=== PATIENT | female | born 1945 | race Caucasian/White ===

== ENCOUNTER 2018-09-20 20:28 | Inpatient (IN) | payer OTHER ==
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
[2018-09-20 21:59] LABS: BASO % 1.2 % (0-2.0); EOS % 2.2 % (0-4.5); HEMATOCRIT 42.2 % (32.4-45.2); HEMOGLOBIN 14.3 GM/dL (10.7-15.3); LYMPH % 22.2 % (8-40); MCH 29.1 pg (25.7-33.7); MEAN CELL VOLUME 85.5 fl (80-96); MONO % 5.8 % (3.8-10.2); NEUT % 68.6 % (42.8-82.8); PLATELET COUNT 182 K/MM3 (134-434); RBC 4.93 M/mm3 (3.60-5.2); RDW 14.6 % (11.6-15.6); WHITE BLOOD COUNT 9.4 K/mm3 (4.0-10.0)
[2018-09-20 22:19] LABS: INR 1.08 (0.83-1.09); PROTHROMBIN TIME (PATIENT) 12.8 SEC (9.7-13.0)
[2018-09-20 22:21] LABS: ACTIVATED PTT 36.5 SECONDS (25.2-36.5)
[2018-09-20 23:04] LABS: ALBUMIN 3.4 g/dl (3.4-5.0); ALK PHOS 102 U/L (45-117); ANION GAP 8 MMOL/L (8-16); BILIRUBIN,TOTAL 0.2 mg/dL (0.2-1); BLOOD UREA NITROGEN 18 mg/dL (7-18); CALCIUM 9.1 mg/dL (8.5-10.1); CHLORIDE 101 mmol/L (98-107); CO2 27 mmol/L (21-32); CREATININE 0.5 mg/dL (0.55-1.3); GLUCOSE,RANDOM 141 mg/dL (74-106); N-TERMINAL BNP 89.1 pg/ml (5-125); POTASSIUM 4.3 mmol/L (3.5-5.1); SGOT/AST 129 U/L (15-37); SGPT/ALT 116 U/L (13-61); SODIUM 136 mmol/L (136-145); TOT PROT 7.4 g/dl (6.4-8.2)
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
--- NOTE | 2018-09-21 00:23 | PDOC ---
*Physical Exam - Vital Signs Last Vital Signs Temp Pulse Resp BP Pulse Ox 97.6 F 67 18 140/71 99 09/20/18 20:59 09/20/18 20:59 09/20/18 20:59 09/20/18 20:59 09/20/18 20:59 ED Treatment Course - LABORATORY CBC & Chemistry Diagram: 09/21/18 08:10 09/21/18 08:10 - ADDITIONAL ORDERS Additional order review: Laboratory Results 09/20/18 09/20/18 09/20/18 22:24 22:24 21:47 PT with INR INR PTT (Actin FS) Sodium 136 Potassium 4.3 Chloride 101 Carbon Dioxide 27 Anion Gap 8 BUN 18 Creatinine 0.5 L Creat Clearance w eGFR 121.63 POC Glucometer Random Glucose 141 H Lactic Acid 1.3 Calcium 9.1 Total Bilirubin 0.2 AST 129 H ALT 116 H Alkaline Phosphatase 102 Creatine Kinase 66 Troponin I < 0.02 B-Natriuretic Peptide 89.1 Total Protein 7.4 Albumin 3.4 09/20/18 09/20/18 09/20/18 21:47 21:47 21:43 PT with INR 12.80 INR 1.08 PTT (Actin FS) 36.5 Sodium Cancelled Potassium Cancelled Chloride Cancelled Carbon Dioxide Cancelled Anion Gap Cancelled BUN Cancelled Creatinine Cancelled Creat Clearance w eGFR Cancelled POC Glucometer 136 Random Glucose Cancelled Lactic Acid Calcium Cancelled Total Bilirubin Cancelled AST Cancelled ALT Cancelled Alkaline Phosphatase Cancelled Creatine Kinase Troponin I B-Natriuretic Peptide Cancelled Total Protein Cancelled Albumin Cancelled 09/20/18 09/20/18 21:47 21:43 RBC 4.93 MCV 85.5 MCHC 34.0 RDW 14.6 MPV 10.0 Neutrophils % 68.6 Lymphocytes % 22.2 Monocytes % 5.8 Eosinophils % 2.2 Basophils % 1.2 POC Glucometer 136 Medical Decision Making - Medical Decision Making Patient signed out by Dr. Sullivan 73yo F with multiple co-morbidities sent by PCP for evaluation Pending UA New inability to ambulate Will reassess 09/21/18 00:23 Decision made to order Head CT. Pending radiology report. Patient signed out to night team and Dr. Adame 09/21/18 02:43 CT head negative 09/21/18 03:02 *DC/Admit/Observation/Transfer Diagnosis at time of Disposition: Failure to thrive Qualifiers: Failure to thrive age range: in adult Qualified Code(s): R62.7 - Adult failure to thrive - Discharge Dispostion Condition at time of disposition: Improved - Referrals - Patient Instructions - Post Discharge Activity
[2018-09-21 01:34] LABS: EPI CELLS 0.6 /HPF (0-5); PH,URINE 6.5 (5.0-8.0); URINE APPEARANCE CLEAR; URINE BACTERIA 1.35 /hpf (NEGATIVE); URINE BILIRUBIN NEGATIVE (<2.0 mg/dL); URINE CASTS 1 /hpf (0-8); URINE COLOR YELLOW; URINE GLUCOSE (UA) NEGATIVE (NEGATIVE); URINE KETONE NEGATIVE (NEGATIVE); URINE LEUK ESTERASE NEGATIVE (NEGATIVE); URINE NITRITE NEGATIVE (NEGATIVE); URINE PROTEIN 1+ (NEGATIVE); URINE RBC 2 /hpf (0-4); URINE WBC 1 /hpf (0-5)
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
[2018-09-21 08:44] LABS: HEMATOCRIT 43.9 % (32.4-45.2); HEMOGLOBIN 14.9 GM/dL (10.7-15.3); MCH 29.1 pg (25.7-33.7); MCHC 33.9 g/dl (32.0-36.0); MEAN PLT VOLUME 9.6 fl (7.5-11.1); PLATELET COUNT 202 K/MM3 (134-434); RDW 14.3 % (11.6-15.6); WHITE BLOOD COUNT 9.8 K/mm3 (4.0-10.0)
[2018-09-21 09:13] LABS: ALBUMIN 3.4 g/dl (3.4-5.0); ALK PHOS 104 U/L (45-117); ANION GAP 7 MMOL/L (8-16); BILIRUBIN,TOTAL 0.3 mg/dL (0.2-1); BLOOD UREA NITROGEN 16 mg/dL (7-18); CHLORIDE 100 mmol/L (98-107); CO2 29 mmol/L (21-32); CREATININE 0.8 mg/dL (0.55-1.3); GLUCOSE,RANDOM 202 mg/dL (74-106); PHOSPHOROUS 3.2 mg/dL (2.5-4.9); POTASSIUM 4.3 mmol/L (3.5-5.1); SGOT/AST 120 U/L (15-37); SGPT/ALT 118 U/L (13-61); SODIUM 137 mmol/L (136-145); TOT PROT 7.6 g/dl (6.4-8.2)
[2018-09-21 10:27] LABS: ACTIVATED PTT 32.8 SECONDS (25.2-36.5)
[2018-09-21 10:31] LABS: INR 1.21 (0.82-1.09); PROTHROMBIN TIME (PATIENT) 13.5 SEC (10.2-13.0)
[2018-09-21] MEDS: INSULIN SLIDING SCALE (NOVOLOG) 1 VIAL SQ SCH ×4 (12:03→22:55)
[2018-09-21] MEDS: ENOXAPARIN NA (PORCINE) 40 MG/0.4 ML DISP.SYRIN SQ SCH (12:03)
[2018-09-21] MEDS ORDERED: INSULIN (NOVOLOG) ASPART 100 UNITS/ML 10ML VIAL ONE ×2 (12:13→16:50)
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
--- NOTE | 2018-09-21 16:27 | EKG ---
Test Reason : Blood Pressure : / mmHG Vent. Rate : 066 BPM Atrial Rate : 066 BPM P-R Int : 144 ms QRS Dur : 078 ms QT Int : 412 ms P-R-T Axes : 031 -43 -08 degrees QTc Int : 431 ms NORMAL SINUS RHYTHM LEFT AXIS DEVIATION MODERATE VOLTAGE CRITERIA FOR LVH, MAY BE NORMAL VARIANT ABNORMAL ECG NO PREVIOUS ECGS AVAILABLE Confirmed by RADHA RODRÍGUEZ MD ([id number]) on 09/21/2018 4:26:58 PM Referred By: Confirmed By:RADHA RODRÍGUEZ MD
[2018-09-21] MEDS ORDERED: GABAPENTIN 100 MG CAPSULE (FP) ONE (16:28)
[2018-09-21] MEDS: GABAPENTIN 300 MG CAPSULE (FP) PO SCH ×2 (16:35→22:55)
[2018-09-21] MEDS ORDERED: METHADONE HCL 10 MG PO PRN (20:12)
[2018-09-21] MEDS: traZODone HCL 50 MG TABLET (FP) PO SCH (22:55)
[2018-09-21] MEDS: clonazePAM 0.5 MG TABLET PO PRN (23:00)
[2018-09-22] MEDS: GABAPENTIN 300 MG CAPSULE (FP) PO SCH ×3 (05:45→22:01)
[2018-09-22] MEDS: INSULIN SLIDING SCALE (NOVOLOG) 1 VIAL SQ SCH ×4 (06:20→22:01)
[2018-09-22] MEDS: ENOXAPARIN NA (PORCINE) 40 MG/0.4 ML DISP.SYRIN SQ SCH (10:03)
--- NOTE | 2018-09-22 11:30 | PN ---
Teaching Attending Note Name of Resident: Fadumo Frost ATTENDING PHYSICIAN STATEMENT I saw and evaluated the patient. I reviewed the resident's note and discussed the case with the resident. I agree with the resident's findings and plan as documented. SUBJECTIVE:no change, is too weak to walk. denies Cp, SOB, fever, chills, N/V/C/ D OBJECTIVE: Last Vital Signs Temp Pulse Resp BP Pulse Ox 98.0 F 72 18 141/73 96 09/22/18 04:00 09/22/18 04:00 09/22/18 04:00 09/22/18 04:00 09/22/18 06:50 General NAD Extremities strength 2/5 LLE 4/5 RLE ASSESSMENT AND PLAN: 73yo F wtih PMH HTN, dyslipidemia, DM, bipolar and chronic back pain on methadone presented to the ER wtih back pain and LE weakness and found on CT to have T11 compression fracture of indeterminate age and multilevel disc herniations and degenerative disc disease 1. Back pain with weakness- T11 compression fracture unclear if new or old. neurosurg consulted to evaluate and see if surgery is indicated at this time. PT eval. pain control 2. DM- hold oral agents. cont iss, bgm 3. bipolar- cont home medications 4. DVT ppx- lovenox
[2018-09-22] MEDS ORDERED: SENNOSIDES 8.6MG TABLET (FP) PO SCH (13:30)
--- NOTE | 2018-09-22 15:04 | PN ---
Physical Exam: SUBJECTIVE: Patient seen and examined at bedside. Complains that her legs "feel like pieces of wood" and that she cannot ambulate. Without further complaint. OBJECTIVE: Vital Signs Period Temp Pulse Resp BP Sys/Singletary Pulse Ox Last 24 Hr 97.9 F-98.3 F 72-80 16-79 133-144/67-88 96-97 GENERAL: The patient is awake, alert, and fully oriented, in no acute distress. HEAD: Normal with no signs of trauma. EYES: PERRL, extraocular movements intact, sclera anicteric, conjunctiva clear. No ptosis. ENT: Ears normal, nares patent, oropharynx clear without exudates, moist mucous membranes. NECK: Trachea midline, supple. LUNGS: Breath sounds equal, clear to auscultation bilaterally, no wheezes, no crackles, no accessory muscle use. HEART: Regular rate and rhythm, S1, S2 without murmur, rub or gallop. ABDOMEN: Soft, obese, nontender, nondistended, normoactive bowel sounds EXTREMITIES: 2+ pt pulses. Edema (L>RLE). 3/5 motor strength LUE. NEUROLOGICAL: Cranial nerves II through XII grossly intact. PSYCH: Normal mood, normal affect. SKIN: Warm, dry, normal turgor Laboratory Results - last 24 hr 09/21/18 09/21/18 09/22/18 16:39 21:57 06:15 POC Glucometer 163 192 212 09/22/18 11:40 POC Glucometer 269 Active Medications Generic Name Dose Route Start Last Admin Trade Name Freq PRN Reason Stop Dose Admin Clonazepam 1 mg 09/21/18 08:52 09/21/18 23:00 Klonopin - PO 1 mg TID PRN Administration ANXIETY Enoxaparin Sodium 40 mg 09/21/18 10:00 09/22/18 10:03 Lovenox - SQ 40 mg DAILY YESY Administration Gabapentin 600 mg 09/21/18 14:00 09/22/18 05:45 Neurontin - PO 600 mg TID YESY Administration Insulin Aspart 1 vial 09/21/18 07:00 09/22/18 12:20 Novolog Vial Sliding Scale - SQ 6 units ACHS YESY Administration Protocol Methadone HCl 10 mg 09/21/18 20:12 Dolophine - PO Q8H PRN PAIN LEVEL 7 - 10 Senna 1 tab 09/22/18 13:30 Senna - PO BID YESY Trazodone HCl 100 mg 09/21/18 22:00 09/21/18 22:55 Desyrel - PO 100 mg HS YESY Administration ASSESSMENT/PLAN: 73 y/o F with PMH HTN, HLD, DM, bipolar disorder, chronic back pain, opiod dependence on methadone, who presents to the ED c/o 2 week hx LE pain and inability to ambulate. #LE pain, inability to ambulate -possible 2/2 t11 compression fx. degenerative disc dz, bulging discs. foraminal stenosis as seen on spine CT -will follow neurosx recs, pt amenable to sx if needed -neurosx: Dr. Alcaraz #DM -BGM, ISS ACHS #Bipolar d/o #Anxiety -c/w trazodone -c/w klonopin PRN #opiod dependence -c/w methadone #F/E/N no IVF required at this time continue to follow lytes diabetic diet #PPX DVT: lovenox #Dispo monitoring on med-surg await neurosx eval and recs if no sx indicated, can d/c home tomorrow Visit type - Emergency Visit Emergency Visit: No - New Patient This patient is new to me today: Yes Date on this admission: 09/22/18 - Critical Care Critical Care patient: No
[2018-09-22] MEDS: SENNOSIDES 8.6MG TABLET (FP) PO SCH ×2 (16:57→22:01)
[2018-09-22] MEDS ORDERED: PT OWN MED DRAWER 7, Y5N ONE (16:57)
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
[2018-09-22] MEDS ORDERED: INSULIN (NOVOLOG) ASPART 100 UNITS/ML 10ML VIAL ONE (21:15)
[2018-09-22] MEDS: clonazePAM 0.5 MG TABLET PO PRN (22:01)
[2018-09-22] MEDS: traZODone HCL 50 MG TABLET (FP) PO SCH (22:01)
[2018-09-23] MEDS: GABAPENTIN 300 MG CAPSULE (FP) PO SCH ×3 (06:33→23:03)
[2018-09-23] MEDS: INSULIN SLIDING SCALE (NOVOLOG) 1 VIAL SQ SCH ×4 (06:34→23:30)
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
[2018-09-23] MEDS ORDERED: PT OWN MED DRAWER 7, Y5N ONE (10:23)
[2018-09-23] MEDS: SENNOSIDES 8.6MG TABLET (FP) PO SCH ×2 (10:44→23:02)
[2018-09-23] MEDS: ENOXAPARIN NA (PORCINE) 40 MG/0.4 ML DISP.SYRIN SQ SCH (10:44)
[2018-09-23] MEDS: METHADONE HCL 10 MG PO PRN ×2 (11:19→23:12)
--- NOTE | 2018-09-23 16:45 | PN ---
Teaching Attending Note Name of Resident: Adrian Tamez ATTENDING PHYSICIAN STATEMENT I saw and evaluated the patient. I reviewed the resident's note and discussed the case with the resident. I agree with the resident's findings and plan as documented. SUBJECTIVE:states today she has pain and still unable to walk. denies CP, SOB, fever, chills, numbnes/tingling in extremities, bowel/bladder incontinence OBJECTIVE: Last Vital Signs Temp Pulse Resp BP Pulse Ox 97.9 F 75 19 144/76 96 09/23/18 14:36 09/23/18 14:36 09/23/18 14:36 09/23/18 14:36 09/23/18 01:00 General NAD Extremities strength 2/5 LLE 4/5 RLE ASSESSMENT AND PLAN: 73yo F wtih PMH HTN, dyslipidemia, DM, bipolar and chronic back pain on methadone presented to the ER wtih back pain and LE weakness and found on CT to have T11 compression fracture of indeterminate age and multilevel disc herniations and degenerative disc disease 1. Back pain with weakness- T11 compression fracture unclear if new or old. neurosurg recommended MRI to further evaluate if surgical candidate. will f/u MRI. pt has methadone she uses for pain. informed her to request pain medications if needed. 2. DM- hold oral agents. cont iss, bgm 3. bipolar- cont home medications 4. DVT ppx- lovenox
[2018-09-23] MEDS: traZODone HCL 50 MG TABLET (FP) PO SCH (23:02)
--- NOTE | 2018-09-23 23:44 | PN ---
Progress Note (short form) - Note Progress Note: MRI Lumbar spine completed and reveals significant degeneration at the L23 level with loss of disc height, Modic changes and endplate sclerosis. There are moderate degenerative changes at other levels in her Lumbar spine and the coronal deformity of her Lumbar degenerative scoliosis is apparent. Plain film radiographs demonstrate a relatively stiff Lumbar degenerative scoliosis. Lateral bending films were not able to be obtained. There is no clear substantial listhesis or abnormal movement noted. The patient continues to have severe pain and cannot get out of bed. She is tachyphylactic to narcotics and in extreme pain. She describes a poor quality of life and severe impairment of her activities of daily living. Patient is with her and I reviewed the Plain film, CT and MRI findings with them in detail. I again described the role of conservative measures and stressed that surgery was not mandatory, however, it appears fairly clear that the patient is in great distress and is not likely to spontaneously improve. I discussed the role of revision surgery with them in great detail. I explained the risks, benefits and alternatives to L2-S1 laminectomies (reoperative at L5S1) and osteotomies with removal of the posterior instrumentation and exploration of the spinal fusion and possible interbody cage/arthrodesis and posterior instrumentaiton from L2-S1 with pedicle screws and correction of deformity. I explained that the risks included, but were not limited to: , coma, paralysis, bleeding, infection, CSF leak possibly requiring spinal drainage or additional surgery, failure to fuse, instrumentation migration/malfunction/malposition and the need for additional surgery. I explained that not all patients improve and complete relief of pain was not assured. I offered her the option of seeking another opinion or another surgeon. All questions were answered. Informed consent was obtained. I explained that unique risks of surgery for her were poor wound healing and elevated risk of infection due to her body habitus and diabetes. I explained that instrumentation may be technically challenging due to her atypically small pedicles and that reoperation was associated with an increased risk of durotomy. I explained that pain control will be a challenge in a patient with her narcotic history. The patient and spouse verbalize an understanding of this information and asked intelligent questions. I gave them an opportunity to discuss this with their family, however, the patient indicates that she is inclined to proceed. I will discuss this case with Dr. Bansal and determine her medical fitness to proceed and will plan for potential surgery on August.
[2018-09-24] MEDS: GABAPENTIN 300 MG CAPSULE (FP) PO SCH ×3 (07:03→21:38)
[2018-09-24] MEDS: INSULIN SLIDING SCALE (NOVOLOG) 1 VIAL SQ SCH ×4 (07:05→21:39)
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
[2018-09-24] MEDS: METHADONE HCL 10 MG PO PRN ×2 (08:57→16:36)
[2018-09-24] MEDS: clonazePAM 0.5 MG TABLET PO PRN ×2 (08:57→16:36)
[2018-09-24] MEDS: SENNOSIDES 8.6MG TABLET (FP) PO SCH ×2 (10:52→21:38)
[2018-09-24] MEDS: ENOXAPARIN NA (PORCINE) 40 MG/0.4 ML DISP.SYRIN SQ SCH (10:52)
--- NOTE | 2018-09-24 11:25 | PN ---
Teaching Attending Note Name of Resident: Adrian Tamez ATTENDING PHYSICIAN STATEMENT I saw and evaluated the patient. I reviewed the resident's note and discussed the case with the resident. I agree with the resident's findings and plan as documented. SUBJECTIVE:states pain is controlled. denies CP, SOB, fever, chills, N/V/C/D OBJECTIVE: Last Vital Signs Temp Pulse Resp BP Pulse Ox 98.0 F 86 18 125/76 96 09/24/18 09:11 09/24/18 09:11 09/24/18 09:11 09/24/18 09:11 09/24/18 01:00 General NAD Extremities strength 2/5 LLE 4/5 RLE skin flat macular rash in atypical pattern across abdomen is noted. also ring like lesion noted on L chest and L wrist. ASSESSMENT AND PLAN: 73yo F wtih PMH HTN, dyslipidemia, DM, bipolar and chronic back pain on methadone presented to the ER wtih back pain and LE weakness and found on CT to have T11 compression fracture of indeterminate age and multilevel disc herniations and degenerative disc disease 1. Back pain with weakness-plan for L2-S1 laminectomies (reoperative at L5S1) on 09/26. will need medical clearance prior to procedure. awaiting official MRI report. pain control. PT post-op to assess if will require GUSTAVO on discharge. further recommendations per neurosurg. 2. rash- atypical presentation. has been present for several years per patient and was told it was ringworm. does not appear to be ringworm. as has been chronic and not new will send derm referral on discharge 3. DM- hold oral agents. cont iss, bgm 4. bipolar- cont home medications 5. DVT ppx- lovenox 6. may need GUSTAVO when medically cleared for discharge.
[2018-09-24] MEDS: traZODone HCL 50 MG TABLET (FP) PO SCH (21:39)
[2018-09-25] MEDS: INSULIN SLIDING SCALE (NOVOLOG) 1 VIAL SQ SCH ×4 (06:47→22:20)
[2018-09-25] MEDS: GABAPENTIN 300 MG CAPSULE (FP) PO SCH ×3 (06:47→22:20)
[2018-09-25] MEDS: clonazePAM 0.5 MG TABLET PO PRN ×2 (06:53→15:15)
[2018-09-25] MEDS: METHADONE HCL 10 MG PO PRN ×3 (06:53→22:20)
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
[2018-09-25] MEDS ORDERED: PT OWN MED DRAWER 7, Y5N ONE (10:02)
[2018-09-25] MEDS: SENNOSIDES 8.6MG TABLET (FP) PO SCH ×2 (10:04→22:20)
[2018-09-25] MEDS: ENOXAPARIN NA (PORCINE) 40 MG/0.4 ML DISP.SYRIN SQ SCH (10:04)
--- NOTE | 2018-09-25 16:32 | PN ---
Teaching Attending Note Name of Resident: Adrian Tamez ATTENDING PHYSICIAN STATEMENT I saw and evaluated the patient. I reviewed the resident's note and discussed the case with the resident. I agree with the resident's findings and plan as documented. SUBJECTIVE: Complains of ongoing neck/back pain. No headache/fever/chills/ photophobia. No bladder/bowel dysfunction. No new focal neurological complaints. OBJECTIVE: Afebrile, Hemodynamically Stable. Oriented x 2. Last Vital Signs Temp Pulse Resp BP Pulse Ox 98.7 F 77 22 H 139/69 92% 09/25/18 14:15 09/25/18 14:15 09/25/18 14:15 09/25/18 14:15 09/25/18 10:00 HEENT - Atraumatic, Normocephalic Heart - S1, S2, Lungs - clear to auscultation Abdomen - Soft, non-tender. Bowel Sounds normal Extremities - No calf tenderness Neuro - AAO x 2. Tone/Power 4-5/5 LEs. Laboratory Results - last 24 hr 09/24/18 09/24/18 09/25/18 16:35 21:36 06:46 POC Glucometer 183 314 213 09/25/18 11:55 POC Glucometer 303 Current Medications Generic Name Dose Route Start Last Admin Trade Name Freq PRN Reason Stop Dose Admin Chlorhexidine Gluconate 1 applic 09/25/18 22:00 Hibiclens For Decolonization - TP 09/26/18 21:59 HS YESY Clonazepam 1 mg 09/21/18 08:52 09/25/18 15:15 Klonopin - PO 1 mg TID PRN Administration ANXIETY Enoxaparin Sodium 40 mg 09/21/18 10:00 09/25/18 10:04 Lovenox - SQ 40 mg DAILY YESY Administration Gabapentin 600 mg 09/21/18 14:00 09/25/18 15:15 Neurontin - PO 600 mg TID YESY Administration Insulin Aspart 1 vial 09/21/18 07:00 09/25/18 11:57 Novolog Vial Sliding Scale - SQ 8 units ACHS YESY Administration Protocol Methadone HCl 10 mg 09/23/18 10:46 09/25/18 15:15 Dolophine - PO 10 mg Q8H PRN Administration PAIN LEVEL 7 - 10 Senna 1 tab 09/22/18 15:30 09/25/18 10:04 Senna - PO 1 tab BID YESY Administration Trazodone HCl 100 mg 09/21/18 22:00 09/24/18 21:39 Desyrel - PO 100 mg HS YESY Administration Home Medications Medication Instructions Recorded Clonazepam 1 mg PO TID 09/21/18 Gabapentin 600 mg PO TID 09/21/18 Insulin Lispro [Humalog Kwikpen 10 units SQ AC 09/21/18 U-100] Metformin HCl [Glucophage] 1,000 mg PO BID 09/21/18 Methadone HCl 1 tab PO Q8H PRN 09/21/18 traZODone HCL [Trazodone HCl] 100 mg PO HS 09/21/18 ASSESSMENT AND PLAN: 73 year old Male with history of HTN, HLD, DM 2, Bipolar Disorder, Chronic Back Pain on Methadone presented with intractable back pain and LE weakness, found to have T11 compression fracture of indeterminate age and multilevel disc herniations and degenerative disc disease on imaging. 1. DJD Spine - scheduled for L2-S1 Laminectomies on 09/26 by Neurosurgery. Patient is at least at moderate risk for proposed procedure. Perioperative IV hydration and post-op DVT Prophylaxis and early mobilization recommended. 2. DM 2 - oral anti-hyperglycemic agents held. Maintain on sliding scale insulin. 3. Bipolar Disorder - Continue Clonazepan, Trazodone 4. Chronic Back Pain secondary to DJD - continue Methadone. 5. Dementia - likely diagnosis. Orientation x 2. Patient unaware of year. She says this is a long-term issue with no other deterioration in her memory. Will leave it up to Surgery to determine medical decision making capacity for proposed procedure. DVT Px - Lovenox - will hold tonight prior to Spinal Sx.
--- NOTE | 2018-09-25 20:45 | PN ---
Progress Note (short form) - Note Progress Note: Patient is stable. Surgery and other treatment options once again reviewed. All questions answered.
[2018-09-25] MEDS ORDERED: CHLORHEXIDINE GLUCONATE 4% CLEANSER FOR DECOLONIZATION TP SCH (22:00)
[2018-09-25] MEDS: traZODone HCL 50 MG TABLET (FP) PO SCH (22:20)
[2018-09-26] MEDS: GABAPENTIN 300 MG CAPSULE (FP) PO SCH ×2 (05:51→21:45)
[2018-09-26] MEDS: INSULIN SLIDING SCALE (NOVOLOG) 1 VIAL SQ SCH ×2 (06:03→21:58)
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
[2018-09-26] MEDS ORDERED: SODIUM CHLORIDE 1,000 ML IV SCH (06:30)
[2018-09-26 07:35] LABS: BASO % 0.4 % (0-2.0); EOS % 2.5 % (0-4.5); HEMATOCRIT 45.5 % (32.4-45.2); HEMOGLOBIN 14.6 GM/dL (10.7-15.3); LYMPH % 33.5 % (8-40); MCH 27.5 pg (25.7-33.7); MCHC 32.2 g/dl (32.0-36.0); MEAN CELL VOLUME 85.6 fl (80-96); MEAN PLT VOLUME 9.8 fl (7.5-11.1); MONO % 5.7 % (3.8-10.2); NEUT % 57.9 % (42.8-82.8); PLATELET COUNT 184 K/MM3 (134-434); RBC 5.31 M/mm3 (3.60-5.2); RDW 14.5 % (11.6-15.6); WHITE BLOOD COUNT 7.9 K/mm3 (4.0-10.0)
[2018-09-26 07:47] LABS: ALBUMIN 3.2 g/dl (3.4-5.0); ALK PHOS 102 U/L (45-117); ANION GAP 4 MMOL/L (8-16); BILIRUBIN,TOTAL 0.4 mg/dL (0.2-1); BLOOD UREA NITROGEN 19 mg/dL (7-18); CALCIUM 9.1 mg/dL (8.5-10.1); CHLORIDE 101 mmol/L (98-107); CO2 31 mmol/L (21-32); CREATININE 0.6 mg/dL (0.55-1.3); GLUCOSE,RANDOM 253 mg/dL (74-106); MAGNESIUM 2.1 mg/dL (1.8-2.4); POTASSIUM 4.3 mmol/L (3.5-5.1); SGOT/AST 67 U/L (15-37); SGPT/ALT 107 U/L (13-61); SODIUM 136 mmol/L (136-145); TOT PROT 7.5 g/dl (6.4-8.2)
[2018-09-26 07:56] LABS: INR 1.14 (0.83-1.09); PROTHROMBIN TIME (PATIENT) 13.5 SEC (9.7-13.0)
[2018-09-26 07:59] LABS: ACTIVATED PTT 39.4 SECONDS (25.2-36.5)
[2018-09-26] MEDS ORDERED: MORPHINE 5 MG/10 ML AMP - FOR COMPOUNDING USE ONLY ONE (08:46)
[2018-09-26] MEDS ORDERED: VANCOMYCIN 1,000 MG VIAL (RESTRICTED TO ID ONLY) ONE (09:05)
[2018-09-26] MEDS ORDERED: LIDOCAINE 1%-EPI 1:100,000 30 ML MDV IJ ONE (09:05)
[2018-09-26] MEDS: SENNOSIDES 8.6MG TABLET (FP) PO SCH ×2 (09:05→21:46)
[2018-09-26] MEDS ORDERED: GENTAMICIN SO4 80 MG/2 ML VIAL ONE ×3 (09:05→12:37)
[2018-09-26] MEDS ORDERED: THROMBIN (BOVINE) 20,000 UNIT VIAL TP ONE ×2 (09:05→13:37)
[2018-09-26] MEDS ORDERED: fentaNYL CITRATE 250 MCG/5 ML VIAL ONE ×3 (09:53→15:39)
[2018-09-26] MEDS ORDERED: PROPOFOL 20 ML ONE ×2 (09:54)
[2018-09-26] MEDS ORDERED: ROCURONIUM BROMIDE 50 MG/5 ML VIAL ONE ×3 (09:54→15:06)
[2018-09-26] MEDS ORDERED: THROMBIN (BOVINE) 5,000 UNIT VIAL TP ONE ×3 (09:57→11:12)
[2018-09-26] MEDS ORDERED: GENTAMICIN SO4 80 MG/2 ML VIAL IVPB ONE ×2 (10:53→11:30)
[2018-09-26] MEDS ORDERED: VANCOMYCIN 1,000 MG VIAL (RESTRICTED TO ID ONLY) IVPB ONE ×3 (10:53→14:42)
[2018-09-26] MEDS ORDERED: ceFAZolin SODIUM 1 GM VIAL IVPB ONE (10:53)
[2018-09-26] MEDS ORDERED: LIDOCAINE 1%/EPI 1:100000 (50 ML MULTI DOSE VIAL) NR ONE (10:54)
[2018-09-26 11:04] LABS: EPI CELLS 2.7 /HPF (0-5); PH,URINE 7.5 (5.0-8.0); URINE APPEARANCE TURBID; URINE BACTERIA >9000 /hpf (NEGATIVE); URINE BILIRUBIN NEGATIVE (NEGATIVE); URINE CASTS 82 /hpf (0-8); URINE COLOR YELLOW; URINE GLUCOSE (UA) 2+ (NEGATIVE); URINE KETONE 1+ (NEGATIVE); URINE LEUK ESTERASE 3+ (NEGATIVE); URINE NITRITE NEGATIVE (NEGATIVE); URINE PROTEIN 1+ (NEGATIVE); URINE WBC 1423 /hpf (0-5)
[2018-09-26] MEDS ORDERED: GELATIN, ABSORBABLE 12-7MM EACH SPONGE TP ONE ×2 (11:12)
[2018-09-26] MEDS ORDERED: ONDANSETRON 4 MG/2 ML VIAL ONE (11:14)
[2018-09-26] MEDS ORDERED: KETOROLAC TROMETHAMINE 30 MG/1 ML VIAL ONE (11:14)
[2018-09-26] MEDS ORDERED: DEXAMETHASONE SOD PHOSPHATE 4 MG/1 ML VIAL ONE (11:14)
[2018-09-26] MEDS ORDERED: BACITRACIN 50,000 UNITS VIAL TP ONE ×3 (11:30→14:42)
[2018-09-26 12:17] LABS: URINE RBC 42 /hpf (0-4)
[2018-09-26 12:19] LABS: YEAST NONE SEEN (NEGATIVE)
[2018-09-26] MEDS ORDERED: SODIUM CHLORIDE 0.9% P/F 10 ML VIAL IJ ONE (12:38)
[2018-09-26] MEDS ORDERED: CALCIUM CHLORIDE 1 GM/10 ML *DISP.SYRIN ONE (13:19)
--- NOTE | 2018-09-26 13:23 | PN ---
Teaching Attending Note Name of Resident: Adrian Tamez ATTENDING PHYSICIAN STATEMENT I saw and evaluated the patient. I reviewed the resident's note and discussed the case with the resident. I agree with the resident's findings and plan as documented. SUBJECTIVE: Complains of ongoing neck/back pain. No headache/fever/chills/ photophobia. No bladder/bowel dysfunction. No new focal neurological complaints. OBJECTIVE: Afebrile, Hemodynamically Stable. Oriented x 2. Last Vital Signs Temp Pulse Resp BP Pulse Ox 98.4 F 81 20 147/88 91 L 09/26/18 06:00 09/26/18 09:00 09/26/18 09:00 09/26/18 09:00 09/25/18 21:00 HEENT - Atraumatic, Normocephalic Heart - S1, S2, Lungs - clear to auscultation Abdomen - Soft, non-tender. Bowel Sounds normal Extremities - No calf tenderness Neuro - AAO x 2. Tone/Power 4-5/5 LEs. Laboratory Results - last 24 hr 09/25/18 09/25/18 09/25/18 17:09 17:30 20:00 WBC RBC Hgb Hct MCV MCH MCHC RDW Plt Count MPV Absolute Neuts (auto) Neutrophils % Lymphocytes % Monocytes % Eosinophils % Basophils % Nucleated RBC % PT with INR INR PTT (Actin FS) Sodium Potassium Chloride Carbon Dioxide Anion Gap BUN Creatinine Creat Clearance w eGFR POC Glucometer 193 Random Glucose Calcium Phosphorus Magnesium Total Bilirubin AST ALT Alkaline Phosphatase Total Protein Albumin Urine Color Urine Appearance Urine pH Ur Specific [place] Urine Protein Urine Glucose (UA) Urine Ketones Urine Blood Urine Nitrite Urine Bilirubin Urine Urobilinogen Ur Leukocyte Esterase Urine WBC (Auto) Urine RBC (Auto) Urine Casts (Auto) U Pathogenic Cast Auto U Epithel Cells (Auto) Urine Bacteria (Auto) Urine Yeast (Auto) Blood Type B NEGATIVE B NEGATIVE Antibody Screen Positive Antibody Identification Anti-D Antigen Identification No Result Required. Crossmatch IS Only 09/25/18 09/26/18 09/26/18 20:31 05:49 06:35 WBC 7.9 RBC 5.31 H Hgb 14.6 Hct 45.5 H MCV 85.6 MCH 27.5 MCHC 32.2 RDW 14.5 Plt Count 184 MPV 9.8 Absolute Neuts (auto) 4.6 Neutrophils % 57.9 Lymphocytes % 33.5 D Monocytes % 5.7 Eosinophils % 2.5 Basophils % 0.4 Nucleated RBC % 0 PT with INR INR PTT (Actin FS) Sodium Potassium Chloride Carbon Dioxide Anion Gap BUN Creatinine Creat Clearance w eGFR POC Glucometer 265 234 Random Glucose Calcium Phosphorus Magnesium Total Bilirubin AST ALT Alkaline Phosphatase Total Protein Albumin Urine Color Urine Appearance Urine pH Ur Specific [place] Urine Protein Urine Glucose (UA) Urine Ketones Urine Blood Urine Nitrite Urine Bilirubin Urine Urobilinogen Ur Leukocyte Esterase Urine WBC (Auto) Urine RBC (Auto) Urine Casts (Auto) U Pathogenic Cast Auto U Epithel Cells (Auto) Urine Bacteria (Auto) Urine Yeast (Auto) Blood Type Antibody Screen Antibody Identification Antigen Identification Crossmatch IS Only 09/26/18 09/26/18 09/26/18 06:35 06:35 06:35 WBC RBC Hgb Hct MCV MCH MCHC RDW Plt Count MPV Absolute Neuts (auto) Neutrophils % Lymphocytes % Monocytes % Eosinophils % Basophils % Nucleated RBC % PT with INR 13.50 H INR 1.14 H PTT (Actin FS) 39.4 H Sodium 136 Potassium 4.3 Chloride 101 Carbon Dioxide 31 Anion Gap 4 L BUN 19 H Creatinine 0.6 Creat Clearance w eGFR 98.55 POC Glucometer Random Glucose 253 H Calcium 9.1 Phosphorus 3.0 Magnesium 2.1 Total Bilirubin 0.4 AST 67 H ALT 107 H Alkaline Phosphatase 102 Total Protein 7.5 Albumin 3.2 L Urine Color Urine Appearance Urine pH Ur Specific [place] Urine Protein Urine Glucose (UA) Urine Ketones Urine Blood Urine Nitrite Urine Bilirubin Urine Urobilinogen Ur Leukocyte Esterase Urine WBC (Auto) Urine RBC (Auto) Urine Casts (Auto) U Pathogenic Cast Auto U Epithel Cells (Auto) Urine Bacteria (Auto) Urine Yeast (Auto) Blood Type B NEGATIVE Antibody Screen Positive Antibody Identification No Result Required. Antigen Identification No Result Required. Crossmatch IS Only See Detail 09/26/18 10:45 WBC RBC Hgb Hct MCV MCH MCHC RDW Plt Count MPV Absolute Neuts (auto) Neutrophils % Lymphocytes % Monocytes % Eosinophils % Basophils % Nucleated RBC % PT with INR INR PTT (Actin FS) Sodium Potassium Chloride Carbon Dioxide Anion Gap BUN Creatinine Creat Clearance w eGFR POC Glucometer Random Glucose Calcium Phosphorus Magnesium Total Bilirubin AST ALT Alkaline Phosphatase Total Protein Albumin Urine Color Yellow Urine Appearance Turbid Urine pH 7.5 Ur Specific [place] 1.023 Urine Protein 1+ H Urine Glucose (UA) 2+ H Urine Ketones 1+ H Urine Blood 2+ H Urine Nitrite Negative Urine Bilirubin Negative Urine Urobilinogen 1.0 Ur Leukocyte Esterase 3+ H Urine WBC (Auto) 1423 Urine RBC (Auto) 42 Urine Casts (Auto) 82 U Pathogenic Cast Auto Wbc cast seen U Epithel Cells (Auto) 2.7 Urine Bacteria (Auto) >9000 Urine Yeast (Auto) None seen Blood Type Antibody Screen Antibody Identification Antigen Identification Crossmatch IS Only Current Medications Generic Name Dose Route Start Last Admin Trade Name Freq PRN Reason Stop Dose Admin Chlorhexidine Gluconate 1 applic 09/25/18 22:00 09/25/18 22:21 Hibiclens For Decolonization - TP 09/26/18 21:59 1 applic HS YESY Administration Clonazepam 1 mg 09/21/18 08:52 09/25/18 15:15 Klonopin - PO 1 mg TID PRN Administration ANXIETY Gabapentin 600 mg 09/21/18 14:00 09/26/18 05:51 Neurontin - PO Not Given TID YESY Sodium Chloride 1,000 mls @ 50 mls/hr 09/26/18 06:30 09/26/18 07:04 Normal Saline - IV 09/27/18 06:24 50 mls/hr ASDIR YESY Administration Insulin Aspart 1 vial 09/21/18 07:00 09/26/18 06:03 Novolog Vial Sliding Scale - SQ Not Given ACHS YESY Protocol Methadone HCl 10 mg 09/23/18 10:46 09/25/18 22:20 Dolophine - PO 10 mg Q8H PRN Administration PAIN LEVEL 7 - 10 Senna 1 tab 09/22/18 15:30 09/26/18 09:05 Senna - PO Not Given BID YESY Trazodone HCl 100 mg 09/21/18 22:00 09/25/18 22:20 Desyrel - PO 100 mg HS YESY Administration ASSESSMENT AND PLAN: 73 year old Male with history of HTN, HLD, DM 2, Bipolar Disorder, Chronic Back Pain on Methadone presented with intractable back pain and LE weakness, found to have T11 compression fracture of indeterminate age and multilevel disc herniations and degenerative disc disease on imaging. 1. DJD Spine - s/p L2-S1 Laminectomies on 09/26 by Neurosurgery. PT Renetta-op management as per Neurosurgery 2. DM 2 - oral anti-hyperglycemic agents held. Maintain on sliding scale insulin. 3. Bipolar Disorder - Continue Clonazepam, Trazodone 4. Chronic Back Pain secondary to DJD - continue Methadone. 5. Dementia - likely diagnosis. Orientation x 2. Patient unaware of year. She says this is a long-term issue with no other deterioration in her memory. Family confirm that patient is at baseline mental status. 6. Elevated Transaminases, etiology unclear. AST 129 --> 67, ALT 118 --> 107. Abdominal US requested. DVT Px - SCDs immediately post neurosurgery.
[2018-09-26] MEDS ORDERED: BUPIVACAINE LIPOSOME/PF (EXPAREL) 266 MG/20 ML VIAL NR ONE ×2 (15:30)
[2018-09-26] MEDS ORDERED: BUPIVACAINE HCL/PF (5 MG/ML) 30 ML VIAL IJ ONE ×2 (15:30)
[2018-09-26] MEDS ORDERED: MIDAZOLAM HCL 2 MG/2 ML SINGLE DOSE VIAL ONE (15:55)
[2018-09-26] MEDS ORDERED: diphenhydrAMINE HCL 25 MG CAPSULE (FP) PO PRN (16:13)
[2018-09-26] MEDS ORDERED: ONDANSETRON 4 MG/2 ML VIAL IVPUSH PRN (16:13)
[2018-09-26] MEDS ORDERED: LACTATED RINGERS SOLUTION 1,000 ML/1,000 ML INFUS.BAG IV SCH (16:15)
[2018-09-26] MEDS ORDERED: morphine CARPU-JECT 4 MG/1 ML DISP.SYRIN IVPUSH SCH (16:15)
--- NOTE | 2018-09-26 16:38 | OP ---
Operative Note - Note: Operative Date: 09/26/18 Pre-Operative Diagnosis: Chronic LBP (h/o fusion), radiculopathy, inability to ambulate secondary to pain Operation: Exploration spinal fusion, removal of hardware, L2-S1 laminectomies with interbody cage placement x2, deformity correction, L2-S1 pedicle screws Estimated Blood Loss (mls): 2,000 Drains & Tubes with Location: RITU Drains, Volume Out (mls): 150 (pal, turbid) Blood Volume Replaced (mls): 1,400 Fluid Volume Replaced (mls): 5,500 Operative Report Dictated: Yes
[2018-09-26] MEDS: FENTANYL INJECTION 500 MCG in DEXTROSE 5%-WATER - 90 ML IVPB SCH (16:50)
[2018-09-26] MEDS: LACTATED RINGERS SOLUTION 1,000 ML/1,000 ML INFUS.BAG IV SCH (17:00)
--- NOTE | 2018-09-26 17:09 | PROC ---
Procedure Note Procedure: Gonzalez cath placed prior to surgical procedure.
--- NOTE | 2018-09-26 17:12 | CONSULT ---
Consult Consult Specialty:: ICU - Past Medical History ...: No - Alcohol/Substance Use Hx Alcohol Use: No - Smoking History Smoking history: Current every day smoker Have you smoked in the past 12 months: Yes Aproximately how many cigarettes per day: 4 Home Medications - Allergies Allergies/Adverse Reactions: Allergies Allergy/AdvReac Type Severity Reaction Status Date / Time No Known Allergies Allergy Verified 09/20/18 20:59 - Home Medications Home Medications: Ambulatory Orders Clonazepam 1 mg PO TID 09/21/18 Gabapentin 600 mg PO TID 09/21/18 Insulin Lispro [Humalog Kwikpen U-100] 10 units SQ AC 09/21/18 Metformin HCl [Glucophage] 1,000 mg PO BID 09/21/18 Methadone HCl 1 tab PO Q8H PRN 09/21/18 traZODone HCL [Trazodone HCl] 100 mg PO HS 09/21/18 Physical Exam Vital Signs: Vital Signs Temperature 98.4 F 09/26/18 06:00 Pulse Rate 81 09/26/18 09:00 Respiratory Rate 20 09/26/18 09:00 Blood Pressure 147/88 09/26/18 09:00 O2 Sat by Pulse Oximetry (%) 91 L 09/25/18 21:00 Labs: CBC, BMP 09/26/18 06:35 09/26/18 06:35
[2018-09-26] MEDS: PROPOFOL 1,000,000 MCG/100 ML VIAL IVPB SCH ×2 (17:15→20:38)
[2018-09-26] MEDS: CEFAZOLIN 1 GM/D5W 1 GM/50 ML BAG IVPB SCH (18:00)
[2018-09-26] MEDS ORDERED: ceFAZolin SODIUM 1 GM VIAL ONE (18:05)
[2018-09-26 18:07] LABS: HEMATOCRIT 48.1 % (32.4-45.2); HEMOGLOBIN 15.6 GM/dL (10.7-15.3); MCH 28.7 pg (25.7-33.7); MCHC 32.5 g/dl (32.0-36.0); MEAN CELL VOLUME 88.2 fl (80-96); MEAN PLT VOLUME 10.6 fl (7.5-11.1); PLATELET COUNT 199 K/MM3 (134-434); RBC 5.46 M/mm3 (3.60-5.2); RDW 13.9 % (11.6-15.6); WHITE BLOOD COUNT 21.4 K/mm3 (4.0-10.0)
[2018-09-26 18:46] LABS: ANION GAP 15 MMOL/L (8-16); BLOOD UREA NITROGEN 21 mg/dL (7-18); CALCIUM 8.1 mg/dL (8.5-10.1); CHLORIDE 106 mmol/L (98-107); CO2 18 mmol/L (21-32); CREATININE 1.2 mg/dL (0.55-1.3); SODIUM 140 mmol/L (136-145)
[2018-09-26 18:50] LABS: GLUCOSE,RANDOM 434 mg/dL (74-106)
[2018-09-26 18:51] LABS: POTASSIUM 6.2 mmol/L (3.5-5.1)
[2018-09-26] MEDS ORDERED: INSULIN REGULAR HUMAN 100 UNITS/ML *VIAL IVPUSH ONE ×2 (19:00→21:39)
[2018-09-26] MEDS ORDERED: ALBUTEROL SO4 0.083% IH SOL 2.5 MG/3 ML VIAL.NEB. NEB ONE (19:30)
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
[2018-09-26 20:43] LABS: HEMATOCRIT 46.1 % (32.4-45.2); HEMOGLOBIN 14.9 GM/dL (10.7-15.3); MCH 28.4 pg (25.7-33.7); MCHC 32.3 g/dl (32.0-36.0); MEAN CELL VOLUME 87.9 fl (80-96); MEAN PLT VOLUME 10.1 fl (7.5-11.1); PLATELET COUNT 199 K/MM3 (134-434); RBC 5.25 M/mm3 (3.60-5.2); RDW 13.5 % (11.6-15.6); WHITE BLOOD COUNT 24.8 K/mm3 (4.0-10.0)
[2018-09-26 21:09] LABS: INR 1.25 (0.83-1.09); PROTHROMBIN TIME (PATIENT) 14.8 SEC (9.7-13.0)
[2018-09-26 21:18] LABS: ALBUMIN 2.5 g/dl (3.4-5.0); ALK PHOS 71 U/L (45-117); ANION GAP 14 MMOL/L (8-16); BILIRUBIN,TOTAL 0.9 mg/dL (0.2-1); BLOOD UREA NITROGEN 27 mg/dL (7-18); CALCIUM 8.2 mg/dL (8.5-10.1); CHLORIDE 105 mmol/L (98-107); CO2 18 mmol/L (21-32); CREATININE 1.4 mg/dL (0.55-1.3); MAGNESIUM 1.8 mg/dL (1.8-2.4); PHOSPHOROUS 5.2 mg/dL (2.5-4.9); POTASSIUM 5.9 mmol/L (3.5-5.1); SGOT/AST 60 U/L (15-37); SGPT/ALT 73 U/L (13-61); SODIUM 137 mmol/L (136-145); TOT PROT 5.4 g/dl (6.4-8.2)
[2018-09-26 21:21] LABS: GLUCOSE,RANDOM 475 mg/dL (74-106)
[2018-09-26] MEDS: traZODone HCL 50 MG TABLET (FP) PO SCH (21:46)
[2018-09-26] MEDS: DOCUSATE SODIUM 100 MG CAPSULE (FP) PO SCH (21:46)
[2018-09-26] MEDS: ALBUTEROL SO4 0.083% IH SOL 2.5 MG/3 ML VIAL.NEB. NEB SCH ×3 (23:00→23:35)
[2018-09-27] MEDS ORDERED: fentaNYL CITRATE 250 MCG/5 ML VIAL ONE ×3 (00:18→20:44)
[2018-09-27] MEDS: CEFAZOLIN 1 GM/D5W 1 GM/50 ML BAG IVPB SCH ×2 (02:00→10:07)
[2018-09-27] MEDS: PROPOFOL 1,000,000 MCG/100 ML VIAL IVPB SCH ×6 (03:28→23:34)
[2018-09-27] MEDS: FENTANYL INJECTION 500 MCG in DEXTROSE 5%-WATER - 90 ML IVPB SCH ×2 (03:28→12:05)
[2018-09-27] MEDS: LACTATED RINGERS SOLUTION 1,000 ML/1,000 ML INFUS.BAG IV SCH (03:29)
[2018-09-27 04:20] LABS: BASO % 0.2 % (0-2.0); HEMATOCRIT 42.1 % (32.4-45.2); LYMPH % 14.2 % (8-40); MCH 28.6 pg (25.7-33.7); MCHC 33.2 g/dl (32.0-36.0); MEAN CELL VOLUME 86.1 fl (80-96); MEAN PLT VOLUME 11.1 fl (7.5-11.1); MONO % 7.1 % (3.8-10.2); NEUT % 78.5 % (42.8-82.8); PLATELET COUNT 198 K/MM3 (134-434); RBC 4.89 M/mm3 (3.60-5.2); RDW 14.1 % (11.6-15.6); WHITE BLOOD COUNT 20.4 K/mm3 (4.0-10.0)
[2018-09-27 04:57] LABS: ALBUMIN 2.4 g/dl (3.4-5.0); ALK PHOS 67 U/L (45-117); ANION GAP 10 MMOL/L (8-16); BILIRUBIN,TOTAL 0.4 mg/dL (0.2-1); BLOOD UREA NITROGEN 35 mg/dL (7-18); CALCIUM 8.1 mg/dL (8.5-10.1); CHLORIDE 106 mmol/L (98-107); CO2 19 mmol/L (21-32); CREATININE 1.8 mg/dL (0.55-1.3); MAGNESIUM 1.8 mg/dL (1.8-2.4); PHOSPHOROUS 3.6 mg/dL (2.5-4.9); POTASSIUM 5.8 mmol/L (3.5-5.1); SGOT/AST 61 U/L (15-37); SGPT/ALT 67 U/L (13-61); SODIUM 135 mmol/L (136-145); TOT PROT 5.3 g/dl (6.4-8.2)
[2018-09-27 04:59] LABS: GLUCOSE,RANDOM 489 mg/dL (74-106)
[2018-09-27] MEDS ORDERED: INSULIN REGULAR HUMAN 100 UNITS/ML *VIAL IVPUSH ONE (05:00)
[2018-09-27] MEDS: ACETAMINOPHEN 1000 MG/100 ML VIAL (NON FORMULARY) IVPB PRN (05:00)
[2018-09-27] MEDS: ALBUTEROL SO4 0.083% IH SOL 2.5 MG/3 ML VIAL.NEB. NEB SCH ×3 (05:15→05:45)
[2018-09-27] MEDS: DOCUSATE SODIUM 100 MG CAPSULE (FP) PO SCH ×3 (05:35→21:13)
[2018-09-27] MEDS: GABAPENTIN 300 MG CAPSULE (FP) PO SCH ×4 (05:36→21:14)
[2018-09-27] MEDS ORDERED: LACTATED RINGERS SOLUTION 1000 ML INFUS.BAG IV ONE (05:44)
[2018-09-27] MEDS: INSULIN SLIDING SCALE (NOVOLOG) 1 VIAL SQ SCH ×5 (06:17→23:39)
[2018-09-27] MEDS ORDERED: SODIUM CHLORIDE 1,000 ML IV SCH (07:15)
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
--- NOTE | 2018-09-27 08:06 | PN ---
Progress Note (short form) - Note Progress Note: POD #1 Remains sedated/intubated. Per RN, no acute events since surgery. Patient not making much urine. BUN/Cr rising (no h/o renal failure) CT s/p procedure: Right L2 pedicle screw traversing just lateral to pedicle. Left L2 pedicle screw breeches lateral recess Last Vital Signs Temp Pulse Resp BP Pulse Ox 100.6 F H 110 H 12 125/113 H 100 09/27/18 06:00 09/27/18 06:00 09/27/18 06:00 09/27/18 06:00 09/26/18 23:34 TRENDS 09/26/18 09/26/18 09/26/18 09/27/18 06:35 17:20 20:15 03:00 Potassium 4.3 6.2 H* 5.9 H 5.8 BUN 19 H 21 H 27 H 35 Creatinine 0.6 1.2 1.4 H 1.5 OUTPUT 09/26/18 09/26/18 09/27/18 09/27/18 23:02 23:34 03:57 05:37 RITU 200 100 100 Pal 100 100 50 Gen: sedated/intubated back: dressing c/d/i. RITU on bulb suction (sanguinous) : pal to gravity LE: SCDs bilat. Problem List - Problems (1) Degenerative scoliosis in adult patient Assessment/Plan: POD #1 s/p Exploration spinal fusion, removal of hardware, L2-S1 laminectomies with interbody cage placement x2, deformity correction, L2-S1 pedicle screws. At start of procedure a pal cath placed and sent for STAT UA --> +UTI. Urine culture sent. Based on CT findings, she may need a revision of the L2 pedicle screws --> once extubated, will be able to assess her pain to see if current hardware positioning is causing any pain. The right L2 pedicle is extremely narrow and may not be able to accommodate a screw without fracturing. Wean to extubate Once extubated, Anasthesia to start ROOFER METAL --> please notify them Tight glycemic control f/u Urine Cult Dr. Mark Sow consulted for pain management given h/o chronic opiod (methodone ) use Dr. Smith / ID consulted Dr. Mensah consulted due to RUBÉN Trend BUN/Cr Monior and record I/Os RITU to bulb suction IV abx will remain while drains are in. SCDs bilat Once extubated, TLSO brace to be worn while OOB to chair or ambulating PT once patient is able to mobilie Cont to medically optimize her should she need a revision Above discussed with Dr. Alcaraz and agrees. Code(s): M41.50 - OTHER SECONDARY SCOLIOSIS, SITE UNSPECIFIED (2) Diabetes mellitus Code(s): E11.9 - TYPE 2 DIABETES MELLITUS WITHOUT COMPLICATIONS (3) Methadone use Code(s): F11.20 - OPIOID DEPENDENCE, UNCOMPLICATED
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
--- NOTE | 2018-09-27 09:51 | PN ---
Progress Note (short form) - Note Progress Note: Anesthesia Post op Pt seen and examined S:intubated and sedated O: Vital Signs Temperature 100.6 F H 09/27/18 06:00 Pulse Rate 110 H 09/27/18 06:00 Respiratory Rate 12 09/27/18 06:00 Blood Pressure 125/113 H 09/27/18 06:00 O2 Sat by Pulse Oximetry (%) 100 09/26/18 23:34 CBC, BMP 09/27/18 03:00 09/27/18 03:00 A/P: Current Active Problems Failure to thrive (Acute) Bipolar 1 disorder (Chronic) Chronic pain due to injury (Chronic) Diabetes mellitus (Chronic) Dyslipidemia (Chronic) HTN (hypertension) (Chronic) Methadone use (Chronic) s/p Spinal fusion L2-S1 and instrumentation Intubated and sedated Febrile,tachycardic,hyperglycemic,hyperkalemic Hgb unchanged post op s/p 4 PRBC Needs correction before extubation Condition guarded. Ryley Martinez MD
[2018-09-27] MEDS: FOLIC ACID 1 MG TABLET (FP) PO SCH (09:59)
[2018-09-27] MEDS: FERROUS SO4 325 MG TABLET (FP) PO SCH (09:59)
[2018-09-27] MEDS: SENNOSIDES 8.6MG TABLET (FP) PO SCH ×2 (10:00→21:14)
[2018-09-27] MEDS ORDERED: SODIUM CHLORIDE 500 ML IV STA (10:07)
--- NOTE | 2018-09-27 10:31 | EKG ---
Test Reason : Blood Pressure : / mmHG Vent. Rate : 120 BPM Atrial Rate : 120 BPM P-R Int : 112 ms QRS Dur : 072 ms QT Int : 298 ms P-R-T Axes : 046 -04 053 degrees QTc Int : 421 ms SINUS TACHYCARDIA NONSPECIFIC ST ABNORMALITY Confirmed by STAR PATTERSON MD ([id number]) on 09/27/2018 10:31:01 AM Referred By: HALIMA Confirmed By:STAR PATTERSON MD
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
[2018-09-27 13:43] LABS: ALBUMIN 2.5 g/dl (3.4-5.0); ALK PHOS 66 U/L (45-117); ANION GAP 12 MMOL/L (8-16); BILIRUBIN,TOTAL 0.5 mg/dL (0.2-1); BLOOD UREA NITROGEN 34 mg/dL (7-18); CALCIUM 7.9 mg/dL (8.5-10.1); CHLORIDE 107 mmol/L (98-107); CO2 21 mmol/L (21-32); CREATININE 1.4 mg/dL (0.55-1.3); POTASSIUM 4.8 mmol/L (3.5-5.1); SGOT/AST 66 U/L (15-37); SGPT/ALT 64 U/L (13-61); SODIUM 139 mmol/L (136-145); TOT PROT 5.3 g/dl (6.4-8.2)
[2018-09-27 13:50] LABS: GLUCOSE,RANDOM 440 mg/dL (74-106)
[2018-09-27] MEDS ORDERED: INSULIN (NOVOLOG) ASPART 100 UNITS/ML 10ML VIAL ONE (14:24)
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
[2018-09-27] MEDS ORDERED: INSULIN (NOVOLOG) ASPART 100 UNITS/ML 10ML VIAL SQ ONE (14:45)
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
[2018-09-27 15:33] LABS: EPI CELLS 0.9 /HPF (0-5); URINE APPEARANCE CLEAR; URINE BACTERIA 62.3 /hpf (NEGATIVE); URINE BILIRUBIN NEGATIVE (NEGATIVE); URINE CASTS 25 /hpf (0-8); URINE COLOR YELLOW; URINE GLUCOSE (UA) 3+ (NEGATIVE); URINE KETONE NEGATIVE (NEGATIVE); URINE LEUK ESTERASE TRACE (NEGATIVE); URINE NITRITE NEGATIVE (NEGATIVE); URINE PROTEIN NEGATIVE (NEGATIVE); URINE RBC 7 /hpf (0-4); URINE UROBILINOGEN 0.2 mg/dL (0.2-1.0); URINE WBC 35 /hpf (0-5)
--- NOTE | 2018-09-27 15:50 | PN ---
Teaching Attending Note Name of Resident: Ni Juarez (Nephrology) ATTENDING PHYSICIAN STATEMENT I saw and evaluated the patient. I reviewed the resident's note and discussed the case with the resident. I agree with the resident's findings and plan as documented. Renal Pt is a 73 year old female with pmhx of HTN, DM, obesity, back pain, and bipolar who is s/p back surgery. She was found to have renal failure and I was called to evaluate her. She is intubated and unable to give history. She did have a few hypotensive episodes in the OR. Pt was also found to be hyperkalemic. pmhxHTN, HLD, Diabetes, bipolar disorder, and chronic back pain pshx back surgery ros pt sedated nkda family hx non contrib Current Medications Generic Name Dose Route Start Last Admin Trade Name Freq PRN Reason Stop Dose Admin Acetaminophen 1,000 mg 09/26/18 19:03 09/27/18 05:00 Ofirmev Injection - IVPB 1,000 mg Q6H PRN Administration FEVER Clonazepam 1 mg 09/21/18 08:52 09/25/18 15:15 Klonopin - PO 1 mg TID PRN Administration ANXIETY Diphenhydramine HCl 25 mg 09/26/18 16:13 Benadryl - PO Q6H PRN FOR ITCHING Docusate Sodium 100 mg 09/26/18 22:00 09/27/18 13:16 Colace - PO Not Given TID YESY Ferrous Sulfate 325 mg 09/27/18 10:00 09/27/18 09:59 Feosol - PO Not Given DAILY YESY Folic Acid 1 mg 09/27/18 10:00 09/27/18 09:59 Folic Acid - PO Not Given DAILY YESY Gabapentin 600 mg 09/21/18 14:00 09/27/18 13:16 Neurontin - PO Not Given TID YESY Cefazolin Sodium 1 gm in 50 mls @ 100 mls/hr 09/26/18 18:00 09/27/18 10:07 Ancef 1 Gm Premixed Ivpb - IVPB 09/27/18 17:59 100 mls/hr Q8H-IV YESY Administration Propofol 1,000,000 mcg in 100 mls @ 2.571 mls/hr 09/26/18 16:30 09/27/18 14: 25 Diprivan - IVPB 38.9 mcg/kg/min TITR YESY 20 mls/hr Administration Protocol 5 MCG/KG/MIN Fentanyl 500 mcg/ Dextrose 100 mls @ 4 mls/hr 09/26/18 16:30 09/27/18 12:05 IVPB 09/27/18 16:29 75 mcg/hr TITR YESY 15 mls/hr Administration Protocol 20 MCG/HR Sodium Chloride 1,000 mls @ 75 mls/hr 09/27/18 07:15 09/27/18 09:58 Normal Saline - IV 75 mls/hr ASDIR YESY Administration Metronidazole 500 mg in 100 mls @ 100 mls/hr 09/27/18 18:00 Flagyl 500mg Premixed Ivpb - IVPB Q8H-IV YESY Insulin Aspart 1 vial 09/27/18 10:08 09/27/18 11:20 Novolog Vial Sliding Scale - SQ 16 units ACHS YESY Administration Protocol Methadone HCl 10 mg 09/23/18 10:46 09/25/18 22:20 Dolophine - PO 10 mg Q8H PRN Administration PAIN LEVEL 7 - 10 Ondansetron HCl 4 mg 09/26/18 16:13 Zofran Injection IVPUSH Q6H PRN NAUSEA Senna 1 tab 09/22/18 15:30 09/27/18 10:00 Senna - PO Not Given BID YESY Trazodone HCl 100 mg 09/21/18 22:00 09/26/18 21:46 Desyrel - PO Not Given HS [facility] Laboratory Tests 09/21/18 09/26/18 09/26/18 08:10 06:35 10:45 Sodium Potassium Creatinine 0.8 0.6 POC Glucometer Random Glucose Urine Protein 1+ H Urine Blood 2+ H 09/26/18 09/26/18 09/27/18 17:20 20:15 03:00 Sodium 135 L Potassium 5.9 H 5.8 H Creatinine 1.2 1.4 H 1.8 H POC Glucometer Random Glucose Urine Protein Urine Blood 09/27/18 09/27/18 10:51 11:53 Sodium Potassium 4.8 Creatinine 1.4 H POC Glucometer 441 Random Glucose 440 H* Urine Protein Urine Blood renal ultrasound - kidneys appears unremarkable cardio s1s2 pulm mechanically ventilated gi soft, obese ext trace edema neuro sedated circ pos pulses Impression 1. RUBÉN 2. hyperkalemia 3. s/p spinal fusion/laminectomy 4. resp failure 5. HTN 6. DM 7. obesity 8. bipolar 9. opioid dependence Plan - renal function improving - monitor urine output - potassium improved - follow urine studies - likely prerenal disease, may develop atherson - deobrahir in icu - vent support
--- NOTE | 2018-09-27 17:09 | CONSULT ---
Consult - History Source History Provided By: Patient, Medical Record Limitations to Obtaining History: No Limitations - Past Medical History ...: No - Alcohol/Substance Use Hx Alcohol Use: No - Smoking History Smoking history: Current every day smoker Have you smoked in the past 12 months: Yes Aproximately how many cigarettes per day: 4 Home Medications - Allergies Allergies/Adverse Reactions: Allergies Allergy/AdvReac Type Severity Reaction Status Date / Time No Known Allergies Allergy Verified 09/20/18 20:59 - Home Medications Home Medications: Ambulatory Orders Clonazepam 1 mg PO TID 09/21/18 Gabapentin 600 mg PO TID 09/21/18 Insulin Lispro [Humalog Kwikpen U-100] 10 units SQ AC 09/21/18 Metformin HCl [Glucophage] 1,000 mg PO BID 09/21/18 Methadone HCl 1 tab PO Q8H PRN 09/21/18 traZODone HCL [Trazodone HCl] 100 mg PO HS 09/21/18 Physical Exam Vital Signs: Vital Signs Temperature 99.7 F H 09/27/18 14:00 Pulse Rate 122 H 09/27/18 16:25 Respiratory Rate 13 09/27/18 17:03 Blood Pressure 121/83 09/27/18 14:00 O2 Sat by Pulse Oximetry (%) 100 09/27/18 16:25 Labs: CBC, BMP 09/27/18 03:00 09/27/18 11:53
[2018-09-27] MEDS: traZODone HCL 50 MG TABLET (FP) PO SCH (21:14)
[2018-09-27] MEDS ORDERED: MORPHINE SULFATE 2 MG/ML VIAL IVPUSH PRN (22:18)
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
[2018-09-27] MEDS ORDERED: PIPERACILLIN/TAZOBACTAM 2.25 GM VIAL IVPB ONE (22:34)
[2018-09-27] MEDS ORDERED: DEXTROSE 5%-WATER - 50 ML IVPB ONE (22:34)
[2018-09-27] MEDS: PIPERACILLIN/TAZOB 2.25 GM 2.25 GM in DEXTROSE 5%-WATER - 50 ML IVPB SCH (22:39)
[2018-09-28] MEDS ORDERED: PIPERACILLIN/TAZOBACTAM 2.25 GM VIAL IVPB ONE ×3 (01:25→16:42)
[2018-09-28] MEDS ORDERED: DEXTROSE 5%-WATER - 50 ML IVPB ONE ×3 (01:26→16:42)
[2018-09-28] MEDS: PIPERACILLIN/TAZOB 2.25 GM 2.25 GM in DEXTROSE 5%-WATER - 50 ML IVPB SCH ×3 (04:38→16:45)
[2018-09-28] MEDS: PROPOFOL 1,000,000 MCG/100 ML VIAL IVPB SCH (04:41)
[2018-09-28] MEDS: DOCUSATE SODIUM 100 MG CAPSULE (FP) PO SCH ×2 (05:39→16:44)
[2018-09-28] MEDS: GABAPENTIN 300 MG CAPSULE (FP) PO SCH ×2 (05:39→16:45)
[2018-09-28] MEDS: INSULIN SLIDING SCALE (NOVOLOG) 1 VIAL SQ SCH ×5 (05:48→18:37)
[2018-09-28] MEDS ORDERED: METOPROLOL TARTRATE 5 MG/5 ML VIAL IVPUSH ONE ×3 (06:40→12:23)
[2018-09-28 06:47] LABS: BASO % 0.2 % (0-2.0); HEMATOCRIT 34.8 % (32.4-45.2); HEMOGLOBIN 11.5 GM/dL (10.7-15.3); LYMPH % 12.8 % (8-40); MCH 28.2 pg (25.7-33.7); MCHC 33.1 g/dl (32.0-36.0); MEAN CELL VOLUME 85.1 fl (80-96); MEAN PLT VOLUME 10.1 fl (7.5-11.1); MONO % 7.4 % (3.8-10.2); NEUT % 79.6 % (42.8-82.8); PLATELET COUNT 180 K/MM3 (134-434); RBC 4.09 M/mm3 (3.60-5.2); RDW 14.1 % (11.6-15.6)
[2018-09-28 07:19] LABS: ALBUMIN 2.4 g/dl (3.4-5.0); ALK PHOS 60 U/L (45-117); ANION GAP 9 MMOL/L (8-16); BILIRUBIN,TOTAL 0.5 mg/dL (0.2-1); BLOOD UREA NITROGEN 25 mg/dL (7-18); CALCIUM 7.9 mg/dL (8.5-10.1); CHLORIDE 107 mmol/L (98-107); CO2 23 mmol/L (21-32); CREATININE 0.8 mg/dL (0.55-1.3); MAGNESIUM 1.9 mg/dL (1.8-2.4); PHOSPHOROUS 2.1 mg/dL (2.5-4.9); POTASSIUM 4.5 mmol/L (3.5-5.1); SGOT/AST 51 U/L (15-37); SGPT/ALT 55 U/L (13-61); SODIUM 139 mmol/L (136-145); TOT PROT 5.2 g/dl (6.4-8.2)
[2018-09-28 07:21] LABS: GLUCOSE,RANDOM 346 mg/dL (74-106)
[2018-09-28] MEDS ORDERED: SODIUM PHOSPHATE - 15 MM in SODIUM CHLORIDE 250 ML IVPB ONE (07:53)
--- NOTE | 2018-09-28 07:53 | PN ---
Progress Note (short form) - Note Progress Note: RENAL remains in ICU comfortable Last Vital Signs Temp Pulse Resp BP Pulse Ox 99.7 F H 111 H 16 171/96 H 100 09/28/18 05:00 09/28/18 06:44 09/28/18 06:35 09/28/18 06:44 09/27/18 22:20 lungs bilat air entry cvs s1s2 rr abd soft ext trace edema neuro sedated CBC, BMP 09/28/18 05:30 09/28/18 05:30 Current Medications Generic Name Dose Route Start Last Admin Trade Name Freq PRN Reason Stop Dose Admin Acetaminophen 1,000 mg 09/26/18 19:03 09/27/18 05:00 Ofirmev Injection - IVPB 1,000 mg Q6H PRN Administration FEVER Clonazepam 1 mg 09/21/18 08:52 09/25/18 15:15 Klonopin - PO 1 mg TID PRN Administration ANXIETY Diphenhydramine HCl 25 mg 09/26/18 16:13 Benadryl - PO Q6H PRN FOR ITCHING Docusate Sodium 100 mg 09/26/18 22:00 09/28/18 05:39 Colace - PO Not Given TID [facility] Ferrous Sulfate 325 mg 09/27/18 10:00 09/27/18 09:59 Feosol - PO Not Given DAILY [facility] Folic Acid 1 mg 09/27/18 10:00 09/27/18 09:59 Folic Acid - PO Not Given DAILY [facility] Gabapentin 600 mg 09/21/18 14:00 09/28/18 05:39 Neurontin - PO Not Given TID YESY Propofol 1,000,000 mcg in 100 mls @ 2.571 mls/hr 09/26/18 16:30 09/28/18 05: 11 Diprivan - IVPB 30 mcg/kg/min TITR YESY 15.423 mls/hr Titration Protocol 5 MCG/KG/MIN Sodium Chloride 1,000 mls @ 75 mls/hr 09/27/18 07:15 09/27/18 09:58 Normal Saline - IV 75 mls/hr ASDIR YESY Administration Metronidazole 500 mg in 100 mls @ 100 mls/hr 09/27/18 18:00 09/28/18 01:30 Flagyl 500mg Premixed Ivpb - IVPB 100 mls/hr Q8H-IV YESY Administration Piperacillin Sod/Tazobactam 50 mls @ 100 mls/hr 09/27/18 22:15 09/28/18 04:38 Sod 2.25 gm/ Dextrose IVPB 100 mls/hr Q6H-IV YESY Administration Protocol Insulin Aspart 1 vial 09/28/18 00:00 09/28/18 05:48 Novolog Vial Sliding Scale - SQ 10 units Q6HPO YESY Administration Protocol Methadone HCl 10 mg 09/23/18 10:46 09/25/18 22:20 Dolophine - PO 10 mg Q8H PRN Administration PAIN LEVEL 7 - 10 Morphine Sulfate 2 mg 09/27/18 22:18 09/27/18 22:37 Morphine Sulfate IVPUSH 2 mg Q6H PRN Administration PAIN LEVEL 6-10 Ondansetron HCl 4 mg 09/26/18 16:13 Zofran Injection IVPUSH Q6H PRN NAUSEA Senna 1 tab 09/22/18 15:30 09/27/18 21:14 Senna - PO Not Given BID YESY Trazodone HCl 100 mg 09/28/18 22:00 Desyrel - PO HS [facility] Impression 1. RUBÉN- better- prerenal vs element of rhabdo ? (doubt) 2. hyperkalemia- resolved 3. s/p spinal fusion/laminectomy 4. resp failure 5. HTN 6. DM 7. obesity 8. bipolar 9. opioid dependence Plan - monitor urine output - potassium improved - follow urine studies - likely prerenal disease improved - montir in icu -keep hydrated. She had a very low urine sodium MV
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
[2018-09-28] MEDS ORDERED: METOPROLOL TARTRATE 5 MG/5 ML VIAL ONE (12:29)
[2018-09-28] MEDS: SODIUM CHLORIDE 1,000 ML IV SCH (12:31)
[2018-09-28 12:51] LABS: ANISOCYTOSIS 2+; MACROCYTOSIS 1+; PLATELET ESTIMATE NORMAL
[2018-09-28] MEDS ORDERED: PT OWN MED DRAWER 7, Y5N ONE ×2 (13:50→22:14)
[2018-09-28] MEDS ORDERED: clonazePAM 0.5 MG TABLET GT PRN (13:50)
[2018-09-28] MEDS: ACETAMINOPHEN 1000 MG/100 ML VIAL (NON FORMULARY) IVPB PRN ×2 (13:59→20:51)
[2018-09-28] MEDS: METHADONE HCL 10 MG GT PRN ×2 (15:56→20:30)
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
[2018-09-28] MEDS: FERROUS SO4 325 MG TABLET (FP) PO SCH (16:44)
[2018-09-28] MEDS: FOLIC ACID 1 MG TABLET (FP) PO SCH (16:49)
[2018-09-28] MEDS: SENNOSIDES 8.6MG TABLET (FP) PO SCH ×2 (16:49→22:15)
[2018-09-28] MEDS: PANTOPRAZOLE SODIUM 40 MG VIAL IVPUSH SCH (17:43)
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
[2018-09-28] MEDS: morphine SULFATE 4 MG/ML VIAL IVPUSH PRN (20:57)
[2018-09-28] MEDS ORDERED: DOCUSATE NA 100 MG/10 ML UNIT-DOSE CUPS PO SCH (22:00)
[2018-09-28] MEDS: traZODone HCL 100 MG TABLET (FP) PO SCH (22:16)
[2018-09-28] MEDS: GABAPENTIN 250 MG/5 ML ORAL SOLUTION, 470 ML BOTTLE GT SCH (22:30)
[2018-09-29] MEDS: INSULIN SLIDING SCALE (NOVOLOG) 1 VIAL SQ SCH ×4 (00:22→18:10)
[2018-09-29] MEDS: PIPERACILLIN/TAZOB 3.375 GM 3.375 GM in DEXTROSE 5%-WATER - 50 ML IVPB SCH ×3 (02:39→21:35)
[2018-09-29] MEDS: morphine SULFATE 4 MG/ML VIAL IVPUSH PRN (03:35)
[2018-09-29] MEDS: METHADONE HCL 10 MG GT PRN ×2 (03:55→12:48)
[2018-09-29] MEDS ORDERED: METOPROLOL TARTRATE 5 MG/5 ML VIAL IVPUSH PRN (04:00)
[2018-09-29] MEDS: ACETAMINOPHEN 1000 MG/100 ML VIAL (NON FORMULARY) IVPB PRN (04:13)
[2018-09-29] MEDS: GABAPENTIN 250 MG/5 ML ORAL SOLUTION, 470 ML BOTTLE GT SCH ×2 (05:23→17:03)
[2018-09-29] MEDS: DOCUSATE NA 100 MG/10 ML UNIT-DOSE CUPS GT SCH ×2 (05:23→14:23)
[2018-09-29] MEDS: cloNIDine HCL 0.1 MG TABLET GT SCH ×2 (06:20→17:10)
[2018-09-29 06:56] LABS: BASO % 0.2 % (0-2.0); HEMATOCRIT 29.3 % (32.4-45.2); HEMOGLOBIN 9.6 GM/dL (10.7-15.3); LYMPH % 16.6 % (8-40); MCH 28.4 pg (25.7-33.7); MCHC 32.8 g/dl (32.0-36.0); MEAN CELL VOLUME 86.5 fl (80-96); MEAN PLT VOLUME 9.8 fl (7.5-11.1); MONO % 6.6 % (3.8-10.2); NEUT % 76.6 % (42.8-82.8); PLATELET COUNT 154 K/MM3 (134-434); RBC 3.39 M/mm3 (3.60-5.2); RDW 14.2 % (11.6-15.6); WHITE BLOOD COUNT 18.1 K/mm3 (4.0-10.0)
[2018-09-29 07:32] LABS: ALBUMIN 2.4 g/dl (3.4-5.0); ALK PHOS 52 U/L (45-117); ANION GAP 6 MMOL/L (8-16); BILIRUBIN,TOTAL 0.6 mg/dL (0.2-1); BLOOD UREA NITROGEN 27 mg/dL (7-18); CALCIUM 7.7 mg/dL (8.5-10.1); CHLORIDE 109 mmol/L (98-107); CO2 26 mmol/L (21-32); CREATININE 0.7 mg/dL (0.55-1.3); MAGNESIUM 2.3 mg/dL (1.8-2.4); PHOSPHOROUS 1.7 mg/dL (2.5-4.9); POTASSIUM 3.7 mmol/L (3.5-5.1); SGOT/AST 49 U/L (15-37); SGPT/ALT 60 U/L (13-61); SODIUM 142 mmol/L (136-145); TOT PROT 5.1 g/dl (6.4-8.2)
[2018-09-29 07:55] LABS: GLUCOSE,RANDOM 330 mg/dL (74-106)
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
[2018-09-29] MEDS ORDERED: POTASSIUM PHOSPHATE 30 MM in SODIUM CHLORIDE 250 ML IVPB ONE (10:00)
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
[2018-09-29] MEDS ORDERED: PIPERACILLIN/TAZOBACTAM 3.375 GM VIAL IVPB ONE ×2 (12:42→21:33)
[2018-09-29] MEDS ORDERED: DEXTROSE 5%-WATER - 50 ML IVPB ONE ×2 (12:42→21:34)
[2018-09-29] MEDS: PANTOPRAZOLE SODIUM 40 MG VIAL IVPUSH SCH (12:48)
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
[2018-09-29] MEDS: FERROUS SO4 325 MG TABLET (FP) PO SCH (14:24)
[2018-09-29] MEDS: FOLIC ACID 1 MG TABLET (FP) PO SCH (14:24)
[2018-09-29] MEDS: SENNOSIDES 8.6MG TABLET (FP) PO SCH ×2 (14:24→21:23)
[2018-09-29] MEDS ORDERED: PT OWN MED DRAWER 7, Y5N ONE ×2 (14:43→18:02)
[2018-09-29] MEDS ORDERED: DOCUSATE NA 100 MG/10 ML UNIT-DOSE CUPS PO PRN (14:53)
[2018-09-29] MEDS ORDERED: clonazePAM 0.5 MG TABLET PO PRN (14:54)
[2018-09-29] MEDS ORDERED: METHADONE HCL 10 MG PO PRN (14:55)
[2018-09-29] MEDS: GABAPENTIN 300 MG CAPSULE (FP) PO SCH ×2 (15:43→21:23)
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
[2018-09-29] MEDS: PROPOFOL 1,000,000 MCG/100 ML VIAL IVPB SCH ×2 (21:19→21:20)
[2018-09-29] MEDS: SODIUM CHLORIDE 1,000 ML IV SCH (21:22)
[2018-09-29] MEDS: traZODone HCL 100 MG TABLET (FP) PO SCH (21:23)
[2018-09-29] MEDS: cloNIDine HCL 0.1 MG TABLET PO SCH (22:32)
[2018-09-30] MEDS: INSULIN SLIDING SCALE (NOVOLOG) 1 VIAL SQ SCH ×5 (00:52→22:00)
[2018-09-30] MEDS ORDERED: PIPERACILLIN/TAZOBACTAM 3.375 GM VIAL IVPB ONE ×3 (01:41→17:26)
[2018-09-30] MEDS ORDERED: DEXTROSE 5%-WATER - 50 ML IVPB ONE ×3 (01:41→17:26)
[2018-09-30] MEDS: PIPERACILLIN/TAZOB 3.375 GM 3.375 GM in DEXTROSE 5%-WATER - 50 ML IVPB SCH ×3 (03:00→17:29)
[2018-09-30] MEDS: GABAPENTIN 300 MG CAPSULE (FP) PO SCH ×3 (06:11→21:49)
[2018-09-30] MEDS: cloNIDine HCL 0.1 MG TABLET PO SCH (06:12)
[2018-09-30 06:36] LABS: BASO % 0.2 % (0-2.0); EOS % 0.2 % (0-4.5); HEMATOCRIT 25.7 % (32.4-45.2); HEMOGLOBIN 8.5 GM/dL (10.7-15.3); MCH 29.1 pg (25.7-33.7); MCHC 33.1 g/dl (32.0-36.0); MEAN CELL VOLUME 87.8 fl (80-96); MEAN PLT VOLUME 9.7 fl (7.5-11.1); MONO % 5.2 % (3.8-10.2); NEUT % 71.4 % (42.8-82.8); PLATELET COUNT 120 K/MM3 (134-434); RBC 2.93 M/mm3 (3.60-5.2); RDW 14.3 % (11.6-15.6); WHITE BLOOD COUNT 9.8 K/mm3 (4.0-10.0)
[2018-09-30 07:28] LABS: ALBUMIN 2.3 g/dl (3.4-5.0); ALK PHOS 49 U/L (45-117); ANION GAP 6 MMOL/L (8-16); BILIRUBIN,TOTAL 0.5 mg/dL (0.2-1); BLOOD UREA NITROGEN 26 mg/dL (7-18); CALCIUM 7.6 mg/dL (8.5-10.1); CHLORIDE 109 mmol/L (98-107); CO2 28 mmol/L (21-32); CREATININE 0.6 mg/dL (0.55-1.3); MAGNESIUM 2.3 mg/dL (1.8-2.4); PHOSPHOROUS 2.4 mg/dL (2.5-4.9); POTASSIUM 4.1 mmol/L (3.5-5.1); SGOT/AST 34 U/L (15-37); SGPT/ALT 52 U/L (13-61); SODIUM 143 mmol/L (136-145); TOT PROT 4.9 g/dl (6.4-8.2)
[2018-09-30 07:37] LABS: GLUCOSE,RANDOM 305 mg/dL (74-106)
--- NOTE | 2018-09-30 07:54 | PN ---
Progress Note (short form) - Note Progress Note: POD #4 Alert. No apparent distress. C/o incisional pain. Patient hasn't been OOB since surgery. No abdominal complaints. Patient developed RUBÉN s/p above procedure ( Renal/Samarneh consulted and following). A Renal U/S ordered followed by complete ABD U/S. Incidental finding of distended GB without stones. Dr. Jaimes ( General Surgery) consulted to see patient. Dr. Jaimes consulted note appreciated. Deneis n/v/f/c, CP, SOB, SIMENTAL, ABD pain, change in urine color. Last Vital Signs Temp Pulse Resp BP Pulse Ox 98.4 F 78 20 150/76 98 09/30/18 06:00 09/30/18 06:00 09/30/18 06:00 09/30/18 06:00 09/29/18 10:05 INR, PTT INR 1.25 (0.83-1.09) H 09/26/18 20:15 TRENDS 09/28/18 09/28/18 09/29/18 09/30/18 05:30 05:30 05:30 05:30 WBC 23.0 18.1 9.8 Hgb 11.5 9.6 8.5 Hct 34.8 29.3 25.7 BUN 25 27 26 Cr 0.8 0.7 0.6 Total Bilirubin 0.5 0.6 0.5 AST 51 H 49 34 ALT 55 60 52 Alkaline Phosphatase 60 52 49 Albumin 2.4 L 2.4 2.3 OUTPUT 09/29/18 09/29/18 09/29/18 09/29/18 09/29/18 09/30/18 04:28 05:27 15:11 18:40 23:00 06:00 RITU 120 155 150 100 Pal 400 600 800 PE Gen: nad, pain when/if she moves to adjust self in her bed ABD: obese habitus. Soft. (+) bowel sounds in all quadrants. NT. ND. (-)Hanna' s Sign Back: Dressing c/d/i. RITU on bulb suction (serosang) : pal to gravity Motor: GMNVI bilat LE: SCDs bilat Problem List - Problems (1) Degenerative scoliosis in adult patient Assessment/Plan: POD #4 s/p s/p Exploration spinal fusion, removal of hardware, L2-S1 laminectomies with interbody cage placement x2, deformity correction, L2-S1 pedicle screws. Her leukocytosis has resolved. Afebrile for 24 hours. LFTs all normal. Her Leukocytosis and previous temps most likely related to her UTI and atelectasis. Dr. Alcaraz is concerned that doing a procedure increases the risk of contaminating the spinal hardware. I spoke with Dr. Alcaraz who has asked Dr. Sarmiento to weigh in on the proposed procedure (Patient is currently NPO for possible Percutaneous Cholecystostomy Tube in IR) to see if it's warranted at this time. If not, would prefer to have general surgery address her ? acalculous cholecystitis as an out-patient. NPO - (if Dr. Sarmiento's decides perc anita not warranted...may resume diet) Cont care per ICU Incentive spirometer Tylenol 650mh PO fever > 100.3F repeat UA Physical therapy Dr. Sow for pain management TLSO brace IV ABX to continue while RITU and pal in I/Os DVT PPX Above plan discussed with Dr. Alcaraz and agrees Code(s): M41.50 - OTHER SECONDARY SCOLIOSIS, SITE UNSPECIFIED (2) Diabetes mellitus Code(s): E11.9 - TYPE 2 DIABETES MELLITUS WITHOUT COMPLICATIONS (3) Methadone use Code(s): F11.20 - OPIOID DEPENDENCE, UNCOMPLICATED
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
[2018-09-30] MEDS: PANTOPRAZOLE SODIUM 40 MG VIAL IVPUSH SCH (09:41)
[2018-09-30] MEDS: SENNOSIDES 8.6MG TABLET (FP) PO SCH ×2 (09:41→21:49)
[2018-09-30] MEDS: FERROUS SO4 325 MG TABLET (FP) PO SCH (09:41)
[2018-09-30] MEDS: FOLIC ACID 1 MG TABLET (FP) PO SCH (09:41)
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
--- NOTE | 2018-09-30 12:19 | PN ---
Progress Note, Physician History of Present Illness: Pt seen and examined at bedside. She is more awake today. She is now extubated. - Current Medication List Current Medications: Active Medications Clonazepam (Klonopin -) 1 mg PO TID PRN PRN Reason: ANXIETY Last Admin: 09/30/18 07:56 Dose: 1 mg Diphenhydramine HCl (Benadryl -) 25 mg PO Q6H PRN PRN Reason: FOR ITCHING Docusate Sodium (Colace Liquid -) 100 mg PO DAILY PRN PRN Reason: CONSTIPATION Ferrous Sulfate (Feosol -) 325 mg PO DAILY [facility] Last Admin: 09/30/18 09:41 Dose: 325 mg Folic Acid (Folic Acid -) 1 mg PO DAILY [facility] Last Admin: 09/30/18 09:41 Dose: 1 mg Gabapentin (Neurontin -) 600 mg PO TID [facility] Last Admin: 09/30/18 06:11 Dose: 600 mg Propofol (Diprivan -) 1,000,000 mcg in 100 mls @ 2.571 mls/hr IVPB TITR [facility]; Protocol Last Admin: 09/29/18 21:20 Dose: Not Given Metronidazole (Flagyl 500mg Premixed Ivpb -) 500 mg in 100 mls @ 100 mls/hr IVPB Q8H-IV [facility] Last Admin: 09/30/18 09:41 Dose: 100 mls/hr Sodium Chloride (Normal Saline -) 1,000 mls @ 42 mls/hr IV ASDIR [facility] Last Admin: 09/29/18 21:22 Dose: 42 mls/hr Piperacillin Sod/Tazobactam (Sod 3.375 gm/ Dextrose) 50 mls @ 100 mls/hr IVPB Q8H-IV [facility]; Protocol Last Admin: 09/30/18 09:41 Dose: 100 mls/hr Insulin Aspart (Novolog Vial Sliding Scale -) 1 vial SQ Q6HPO [facility]; Protocol Last Admin: 09/30/18 06:10 Dose: 10 units Lisinopril (Prinivil) 10 mg PO DAILY [facility] Methadone HCl (Dolophine -) 10 mg PO Q8H PRN PRN Reason: PAIN LEVEL 7 - 10 Last Admin: 09/30/18 07:57 Dose: 10 mg Metoprolol Tartrate (Lopressor Injection -) 5 mg IVPUSH Q4H PRN PRN Reason: HYPERTENSION Last Admin: 09/29/18 04:22 Dose: 5 mg Morphine Sulfate (Morphine Sulfate) 4 mg IVPUSH Q6H PRN PRN Reason: PAIN LEVEL 6-10 Last Admin: 09/29/18 03:35 Dose: 4 mg Ondansetron HCl (Zofran Injection) 4 mg IVPUSH Q6H PRN PRN Reason: NAUSEA Senna (Senna -) 1 tab PO BID [facility] Last Admin: 09/30/18 09:41 Dose: 1 tab Trazodone HCl (Desyrel -) 100 mg PO HS [facility] Last Admin: 09/29/18 21:23 Dose: 100 mg - Objective Vital Signs: Vital Signs Temperature 98.4 F 09/30/18 06:00 Pulse Rate 68 09/30/18 10:00 Respiratory Rate 16 09/30/18 10:00 Blood Pressure 121/64 09/30/18 10:00 O2 Sat by Pulse Oximetry (%) 98 09/29/18 10:05 Constitutional: Yes: Calm Eyes: Yes: Conjunctiva Clear HENT: Yes: Atraumatic Cardiovascular: Yes: S1, S2 Respiratory: Yes: On Nasal O2 Gastrointestinal: Yes: Soft, Abdomen, Obese Genitourinary: Yes: Gonzalez Present Edema: Yes Edema: LLE: Trace, RLE: Trace Neurological: Yes: Oriented Labs: CBC, BMP 09/30/18 05:30 09/30/18 05:30 INR, PTT INR 1.25 (0.83-1.09) H 09/26/18 20:15 Assessment/Plan Current Medications Generic Name Dose Route Start Last Admin Trade Name Joseq PRN Reason Stop Dose Admin Clonazepam 1 mg 09/29/18 14:54 09/30/18 07:56 Klonopin - PO 1 mg TID PRN Administration ANXIETY Diphenhydramine HCl 25 mg 09/26/18 16:13 Benadryl - PO Q6H PRN FOR ITCHING Docusate Sodium 100 mg 09/29/18 14:53 Colace Liquid - PO DAILY PRN CONSTIPATION Ferrous Sulfate 325 mg 09/27/18 10:00 09/30/18 09:41 Feosol - PO 325 mg DAILY [facility] Administration Folic Acid 1 mg 09/27/18 10:00 09/30/18 09:41 Folic Acid - PO 1 mg DAILY [facility] Administration Gabapentin 600 mg 09/29/18 15:00 09/30/18 06:11 Neurontin - PO 600 mg TID [facility] Administration Propofol 1,000,000 mcg in 100 mls @ 2.571 mls/hr 09/26/18 16:30 09/29/18 21: 20 Diprivan - IVPB Not Given TITR [facility] Protocol 5 MCG/KG/MIN Metronidazole 500 mg in 100 mls @ 100 mls/hr 09/27/18 18:00 09/30/18 09:41 Flagyl 500mg Premixed Ivpb - IVPB 100 mls/hr Q8H-IV [facility] Administration Sodium Chloride 1,000 mls @ 42 mls/hr 09/28/18 12:00 09/29/18 21:22 Normal Saline - IV 42 mls/hr ASDIR [facility] Administration Piperacillin Sod/Tazobactam 50 mls @ 100 mls/hr 09/29/18 02:00 09/30/18 09:41 Sod 3.375 gm/ Dextrose IVPB 100 mls/hr Q8H-IV [facility] Administration Protocol Insulin Aspart 1 vial 09/28/18 14:00 09/30/18 06:10 Novolog Vial Sliding Scale - SQ 10 units Q6HPO [facility] Administration Protocol Lisinopril 10 mg 10/01/18 10:00 Prinivil PO DAILY [facility] Methadone HCl 10 mg 09/29/18 14:55 09/30/18 07:57 Dolophine - PO 10 mg Q8H PRN Administration PAIN LEVEL 7 - 10 Metoprolol Tartrate 5 mg 09/29/18 04:00 09/29/18 04:22 Lopressor Injection - IVPUSH 5 mg Q4H PRN Administration HYPERTENSION Morphine Sulfate 4 mg 09/28/18 20:07 09/29/18 03:35 Morphine Sulfate IVPUSH 4 mg Q6H PRN Administration PAIN LEVEL 6-10 Ondansetron HCl 4 mg 09/26/18 16:13 Zofran Injection IVPUSH Q6H PRN NAUSEA Senna 1 tab 09/22/18 15:30 09/30/18 09:41 Senna - PO 1 tab BID [facility] Administration Trazodone HCl 100 mg 09/28/18 22:00 09/29/18 21:23 Desyrel - PO 100 mg HS [facility] Administration Impression 1. RUBÉN 2. hyperkalemia 3. s/p spinal fusion/laminectomy 4. resp failure 5. HTN 6. DM 7. obesity 8. bipolar 9. opioid dependence Plan - renal function is improved - potassium is stable - likely prerenal disease - pt is off of vent - monitor renal function - avoid nsaids
[2018-09-30] MEDS: SODIUM CHLORIDE 1,000 ML IV SCH (12:26)
--- NOTE | 2018-09-30 12:33 | PN ---
Teaching Attending Note Name of Resident: Kayla Clifford ATTENDING PHYSICIAN STATEMENT I saw and evaluated the patient. I reviewed the resident's note and discussed the case with the resident. I agree with the resident's findings and plan as documented. SUBJECTIVE: Pt seen and examined in the ICU. c/o generalized pain. No specific abdominal pain. +nausea, no fevers recorded. OBJECTIVE: Vital Signs Period Temp Pulse Resp BP Sys/Singletary Pulse Ox Last 24 Hr 98.4 F-99.9 F 66-91 16-24 100-168/49-102 Intake & Output 09/27/18 09/28/18 09/29/18 09/30/18 23:59 23:59 23:59 23:59 Intake Total 3535 2030 1189 904 Output Total 1400 2305 1425 900 Balance 2135 -275 -236 4 Weight 85.275 kg 94 kg 89.494 kg 89.494 kg Gen: NAD at rest Heart: RRR Lung: decreased breath sounds at the bases Abd: soft, nontender Ext: + edema CBC, BMP 09/30/18 05:30 09/30/18 05:30 Active Medications Clonazepam (Klonopin -) 1 mg PO TID PRN PRN Reason: ANXIETY Last Admin: 09/30/18 07:56 Dose: 1 mg Diphenhydramine HCl (Benadryl -) 25 mg PO Q6H PRN PRN Reason: FOR ITCHING Docusate Sodium (Colace Liquid -) 100 mg PO DAILY PRN PRN Reason: CONSTIPATION Ferrous Sulfate (Feosol -) 325 mg PO DAILY [facility] Last Admin: 09/30/18 09:41 Dose: 325 mg Folic Acid (Folic Acid -) 1 mg PO DAILY [facility] Last Admin: 09/30/18 09:41 Dose: 1 mg Gabapentin (Neurontin -) 600 mg PO TID [facility] Last Admin: 09/30/18 06:11 Dose: 600 mg Metronidazole (Flagyl 500mg Premixed Ivpb -) 500 mg in 100 mls @ 100 mls/hr IVPB Q8H-IV [facility] Last Admin: 09/30/18 09:41 Dose: 100 mls/hr Sodium Chloride (Normal Saline -) 1,000 mls @ 42 mls/hr IV ASDIR [facility] Last Admin: 09/30/18 12:26 Dose: 42 mls/hr Piperacillin Sod/Tazobactam (Sod 3.375 gm/ Dextrose) 50 mls @ 100 mls/hr IVPB Q8H-IV [facility]; Protocol Last Admin: 09/30/18 09:41 Dose: 100 mls/hr Insulin Aspart (Novolog Vial Sliding Scale -) 1 vial SQ Q6HPO [facility]; Protocol Last Admin: 09/30/18 12:26 Dose: 12 units Lisinopril (Prinivil) 10 mg PO DAILY [facility] Methadone HCl (Dolophine -) 10 mg PO Q8H PRN PRN Reason: PAIN LEVEL 7 - 10 Last Admin: 09/30/18 07:57 Dose: 10 mg Metoprolol Tartrate (Lopressor Injection -) 5 mg IVPUSH Q4H PRN PRN Reason: HYPERTENSION Last Admin: 09/29/18 04:22 Dose: 5 mg Morphine Sulfate (Morphine Sulfate) 4 mg IVPUSH Q6H PRN PRN Reason: PAIN LEVEL 6-10 Last Admin: 09/29/18 03:35 Dose: 4 mg Ondansetron HCl (Zofran Injection) 4 mg IVPUSH Q6H PRN PRN Reason: NAUSEA Senna (Senna -) 1 tab PO BID [facility] Last Admin: 09/30/18 09:41 Dose: 1 tab Trazodone HCl (Desyrel -) 100 mg PO HS [facility] Last Admin: 09/29/18 21:23 Dose: 100 mg ASSESSMENT AND PLAN: s/p Acute Respiratory Failure Lumbar Scoliosis s/p L2-S1 Laminectomies/Interbody Cage Placements/Pedicle Screws r/o Acalculous Cholecystitis Acute Kidney Injury improving HTN DM Hyperlipidmemia Bipolar Disorder Methadone Maintenance - continue antibiotics - monitor fever curve, WBC trend - trend LFTs - can defer cholecystectomy at this time as pt appears to be clinically improving - monitor drain output - IVF - monitor urine output, creatinine - PO as tolerated - DVT prophylaxis - can monitor on floor critical care time spent in reviewing chart, evaluating patient and formulating plan 35 min
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
[2018-09-30] MEDS: morphine SULFATE 4 MG/ML VIAL IVPUSH PRN ×2 (14:12→20:24)
[2018-09-30] MEDS ORDERED: SODIUM PHOSPHATE - 15 MM in SODIUM CHLORIDE 250 ML IVPB ONE (15:15)
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
--- NOTE | 2018-09-30 20:15 | CONSULT ---
Consult Consult Specialty:: Pain Management Reason for Consultation:: Bacl pain s/p Lumbar Surgery - History of Present Illness Chief Complaint: Back pain History of Present Illness: 73 yr old female with h/o Chronic Back pain , radiculopathy and fusion was taking Methadone for her pain. She underwent revision surgery and her pain was not controlled. After taking methadone she felt better and calm down. Pain - - History Source History Provided By: Patient, Medical Record Limitations to Obtaining History: No Limitations - Past Medical History [employer]: No: Alzheimer's, CVA, Dementia, Migraine, Multiple Sclerosis, Peripheral Neuropathy, Parkinson's, Seizure, Syncope, TIA, Vertigo, Other Pulmonary: No: Asthma, Bronchitis, Cancer, COPD, O2 Dependent, Pneumonia, Previously Intubated, Pulmonary Embolus, Pulmonary Fibrosis, Sleep Apnea, Other Gastrointestinal: No: Ascites, Cancer, Constipation, Crohn's Disease, Diverticulitis, Diverticulosis, Esophageal Varices, Gastritis, GERD, GI Bleed, Hemorrhoids, Hiatal Hernia, Inflamatory Bowel Disease, Irritable Bowel Disease, Pancreatitis, Peptic Ulcer Disease, Ulcerative Colitis, Other ...: No Infectious Disease: No: AIDS, C-Diff, Herpes Zoster, HIV, MRSA, STD's, Tuberculosis, VREF, Other Psych: No: Addictions, Anxiety, Bipolar, Depression, Panic, Psychosis, Schizophrenia, Other Musculoskeletal: Yes: Other (back pain s/p surgwery ) - Alcohol/Substance Use Hx Alcohol Use: No - Smoking History Smoking history: Current every day smoker Have you smoked in the past 12 months: Yes Aproximately how many cigarettes per day: 4 Home Medications - Allergies Allergies/Adverse Reactions: Allergies Allergy/AdvReac Type Severity Reaction Status Date / Time No Known Allergies Allergy Verified 09/20/18 20:59 - Home Medications Home Medications: Ambulatory Orders Clonazepam 1 mg PO TID 09/21/18 Gabapentin 600 mg PO TID 09/21/18 Insulin Lispro [Humalog Kwikpen U-100] 10 units SQ AC 09/21/18 Metformin HCl [Glucophage] 1,000 mg PO BID 09/21/18 Methadone HCl 1 tab PO Q8H PRN 09/21/18 traZODone HCL [Trazodone HCl] 100 mg PO HS 09/21/18 Review of Systems - Review of Systems Constitutional: reports: No Symptoms HENT: reports: No Symptoms Neck: reports: No Symptoms Respiratory: reports: No Symptoms, Other (on O2) Gastrointestinal: reports: Constipation Genitourinary: reports: Other (Cather present) Musculoskeletal: reports: Back Pain Neurological: reports: No Symptoms Psychiatric: reports: No Symptoms Pain Intensity: 6 Physical Exam Vital Signs: Vital Signs Temperature 98.4 F 09/30/18 14:00 Pulse Rate 86 09/30/18 19:57 Respiratory Rate 21 H 09/30/18 19:57 Blood Pressure 132/64 09/30/18 19:57 O2 Sat by Pulse Oximetry (%) 98 09/29/18 10:05 Constitutional: Yes: Well Nourished Eyes: Yes: WNL HENT: Yes: WNL Respiratory: Yes: Other (on O2) Gastrointestinal: Yes: WNL Musculoskeletal: Yes: Other (Back suregry dressing +) Extremities: Yes: WNL Neurological: Yes: WNL Labs: CBC, BMP 09/30/18 05:30 09/30/18 05:30 Problem List - Problems (1) Postoperative back pain Assessment/Plan: Continue current care Methadone 10 mg BID weaning of Morphine to oral if needed Please call me if any question [phone] Code(s): G89.18 - OTHER ACUTE POSTPROCEDURAL PAIN
[2018-09-30] MEDS: METHADONE HCL 10 MG PO SCH ×2 (20:25→21:48)
[2018-09-30] MEDS: traZODone HCL 100 MG TABLET (FP) PO SCH (21:48)
[2018-09-30] MEDS: clonazePAM 0.5 MG TABLET PO SCH (21:49)
[2018-10-01] MEDS ORDERED: DEXTROSE 5%-WATER - 50 ML IVPB ONE ×4 (01:35→17:09)
[2018-10-01] MEDS ORDERED: PIPERACILLIN/TAZOBACTAM 3.375 GM VIAL IVPB ONE ×4 (01:35→17:08)
[2018-10-01] MEDS: PIPERACILLIN/TAZOB 3.375 GM 3.375 GM in DEXTROSE 5%-WATER - 50 ML IVPB SCH ×3 (01:37→17:30)
[2018-10-01] MEDS: clonazePAM 0.5 MG TABLET PO SCH ×3 (05:18→22:03)
[2018-10-01] MEDS: GABAPENTIN 300 MG CAPSULE (FP) PO SCH ×3 (05:19→22:03)
[2018-10-01 06:13] LABS: BASO % 0.2 % (0-2.0); EOS % 1.9 % (0-4.5); HEMATOCRIT 26.9 % (32.4-45.2); HEMOGLOBIN 8.9 GM/dL (10.7-15.3); MCH 29.1 pg (25.7-33.7); MCHC 33.2 g/dl (32.0-36.0); MEAN CELL VOLUME 87.7 fl (80-96); MEAN PLT VOLUME 9.4 fl (7.5-11.1); MONO % 5.3 % (3.8-10.2); NEUT % 68.6 % (42.8-82.8); PLATELET COUNT 134 K/MM3 (134-434); RBC 3.07 M/mm3 (3.60-5.2); WHITE BLOOD COUNT 11.2 K/mm3 (4.0-10.0)
[2018-10-01] MEDS: INSULIN SLIDING SCALE (NOVOLOG) 1 VIAL SQ SCH ×4 (06:30→22:00)
[2018-10-01 06:50] LABS: ALBUMIN 2.4 g/dl (3.4-5.0); ALK PHOS 49 U/L (45-117); ANION GAP 6 MMOL/L (8-16); BILIRUBIN,TOTAL 0.4 mg/dL (0.2-1); BLOOD UREA NITROGEN 18 mg/dL (7-18); CALCIUM 7.5 mg/dL (8.5-10.1); CHLORIDE 103 mmol/L (98-107); CO2 27 mmol/L (21-32); CREATININE 0.4 mg/dL (0.55-1.3); GLUCOSE,RANDOM 222 mg/dL (74-106); MAGNESIUM 2.3 mg/dL (1.8-2.4); PHOSPHOROUS 1.8 mg/dL (2.5-4.9); POTASSIUM 3.7 mmol/L (3.5-5.1); SGOT/AST 31 U/L (15-37); SGPT/ALT 45 U/L (13-61); SODIUM 137 mmol/L (136-145); TOT PROT 5.2 g/dl (6.4-8.2)
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
[2018-10-01] MEDS ORDERED: morphine SULFATE 4 MG/ML VIAL IVPUSH PRN ×2 (08:07→08:21)
--- NOTE | 2018-10-01 08:15 | PN ---
Progress Note (short form) - Note Progress Note: POD#4 Pt lethargic today. Vital Signs Period Temp Pulse Resp BP Sys/Singletary Pulse Ox Last 24 Hr 98.2 F-98.6 F 68-86 16-21 117-158/56-94 RITU:200 ml serosangrenous GEN: arousable and follows commands CV: RRR Lungs: CTA b/l anteriorly ABD: soft, slight distended. Mild epigastric tenderness. LE: SCDs in place and no calf swelling or tenderness b/l BACK: dressing c/d/i with aquacel Neuro: poor effort overall but moving her upper/lower extremities CBC, BMP 04/02/19 05:30 04/02/19 05:30 A/P: 73 yo female s/p L2-S1 PLIF Diet as tolerated IV abx zosyn/flagyl Physical Therapy, pt needs mobilization, TLSO brace Wean off IV morphine 2mg IV Q6h, Continue methadone as per Dr. Sow Heparin SQ 5000 units TID Continue Iron D/w Dr. Alcaraz
[2018-10-01] MEDS ORDERED: POTASSIUM PHOSPHATE 30 MM in SODIUM CHLORIDE 250 ML IVPB ONE (08:30)
[2018-10-01] MEDS: METHADONE HCL 10 MG PO SCH ×2 (09:00→22:02)
[2018-10-01] MEDS: FOLIC ACID 1 MG TABLET (FP) PO SCH (09:00)
[2018-10-01] MEDS: LISINOPRIL 10 MG TABLET (FP) PO SCH (09:00)
[2018-10-01] MEDS: SENNOSIDES 8.6MG TABLET (FP) PO SCH ×2 (09:00→22:03)
[2018-10-01] MEDS: FERROUS SO4 325 MG TABLET (FP) PO SCH (09:00)
[2018-10-01] MEDS: NAPH,MB-DB/K PH,MBDB POWDER PACKET PO SCH ×2 (10:01→22:02)
--- NOTE | 2018-10-01 10:46 | PN ---
Teaching Attending Note Name of Resident: Adrian Tamez ATTENDING PHYSICIAN STATEMENT I saw and evaluated the patient. I reviewed the resident's note and discussed the case with the resident. I agree with the resident's findings and plan as documented. SUBJECTIVE:c/o diffuse body aches, she wants to get out of bed. denies CP, SOB, fever, chills, N/V/C/D, RUQ pain that is worse with eating OBJECTIVE: Last Vital Signs Temp Pulse Resp BP Pulse Ox 98.4 F 88 25 H 157/75 98 10/01/18 06:00 10/01/18 08:00 10/01/18 09:00 10/01/18 08:00 09/29/18 10:05 General NAD CV S1 S2 + Lungs CTA anteriorly Abdomen soft NT/ND neg love sign, obese Extremities 1 +pitting edema ASSESSMENT AND PLAN: 73yo F wtih PMH HTN, dyslipidemia, DM, bipolar and chronic back pain on methadone presented to the ER wtih back pain and LE weakness and found on CT to have T11 compression fracture of indeterminate age and multilevel disc herniations and underwent laminectomy on 09/26/18. Course complicated by large volume blood loss and development of questionable acute cholecystitis 1. Acute Respiratory farilure- due to developing sepsis due to hypoperfusion intra-operatively. now extubated. now saturating well on NC. CT negative for acute pathology. 2. Sepsis due to suspected acute cholecystitis- Elevated LFT which could have been due to hypoperfusion which are now normalized. treated medically with Zosyn and Flagyl day 5. surgery was consulted which deferred surgical intervention. agree with medical management. pt is asymptomatic. can have repeat u/s vs HIDA to further evaluate. ID, surgery on board 3. Acute blood loss anemia- due to surgery. s/p 4 units PRBC this hospital stay. no further bleeding noted. Hgb stable. no indication for transfusion 4. RUBÉN- due to sepsis and hypoperfusion. now resolved. nephro on board 5. Hyperkalemia- due to RUBÉN. resolved 6. Hypophosphatemia- neutraphos 7. T11 compression fracture- s/p Exploration spinal fusion, removal of hardware , L2-S1 laminectomies with interbody cage placement x2, deformity correction, L2 -S1, pedicle screws on 09/26. titrate off morphine IV. cont methadone BID. will need GUSTAVO. neurosurg and pain management on board 8. DM- hold oral agents. cont BGM/ISS 9. bipolar- cont home regimen 10. DVT ppx-hep sq 11. MICU- stable for transfer to med-surg 12. PT eval. may need GUSTAVO when medically cleared for discharge. The care of this patient involved high complexity decision making to prevent further life threatening deterioration of the patient's condition and/or to evaluate & treat vital organ system(s) failure or risk of failure. 38 mins
[2018-10-01] MEDS: LACTOBACILLUS ACIDOPHILUS 1 TABLET PO SCH (11:49)
--- NOTE | 2018-10-01 12:50 | PN ---
Teaching Attending Note Name of Resident: Kayla Clifford ATTENDING PHYSICIAN STATEMENT I saw and evaluated the patient. I reviewed the resident's note and discussed the case with the resident. I agree with the resident's findings and plan as documented. SUBJECTIVE: Pt seen and examined in the ICU. No overnight events. No fevers recorded. Denies abdominal pain. OBJECTIVE: Vital Signs Period Temp Pulse Resp BP Sys/Singletary Pulse Ox Last 24 Hr 98.2 F-98.6 F 75-94 18-25 117-161/56-80 Intake & Output 09/28/18 09/29/18 09/30/18 10/01/18 23:59 23:59 23:59 23:59 Intake Total 2030 1189 2350 754 Output Total 2305 1425 1900 500 Balance -275 -236 450 254 Weight 94 kg 89.494 kg 89.494 kg 89.494 kg Gen: NAD at rest Heart: RRR Lung: decreased breath sounds at the bases Abd: soft, nontender Ext: no edema CBC, BMP 10/01/18 05:30 10/01/18 05:30 Active Medications Clonazepam (Klonopin -) 1 mg PO TID [facility] Last Admin: 10/01/18 05:18 Dose: 1 mg Diphenhydramine HCl (Benadryl -) 25 mg PO Q6H PRN PRN Reason: FOR ITCHING Docusate Sodium (Colace Liquid -) 100 mg PO DAILY PRN PRN Reason: CONSTIPATION Ferrous Sulfate (Feosol -) 325 mg PO DAILY [facility] Last Admin: 10/01/18 09:00 Dose: 325 mg Folic Acid (Folic Acid -) 1 mg PO DAILY [facility] Last Admin: 10/01/18 09:00 Dose: 1 mg Gabapentin (Neurontin -) 600 mg PO TID [facility] Last Admin: 10/01/18 05:19 Dose: 600 mg Heparin Sodium (Porcine) (Heparin -) 5,000 unit SQ TID [facility] Metronidazole (Flagyl 500mg Premixed Ivpb -) 500 mg in 100 mls @ 100 mls/hr IVPB Q8H-IV [facility] Last Admin: 10/01/18 09:00 Dose: 100 mls/hr Sodium Chloride (Normal Saline -) 1,000 mls @ 42 mls/hr IV ASDIR [facility] Last Admin: 09/30/18 12:26 Dose: 42 mls/hr Piperacillin Sod/Tazobactam (Sod 3.375 gm/ Dextrose) 50 mls @ 100 mls/hr IVPB Q8H-IV [facility]; Protocol Last Admin: 10/01/18 09:00 Dose: 100 mls/hr Insulin Aspart (Novolog Vial Sliding Scale -) 1 vial SQ Q6HPO [facility]; Protocol Last Admin: 10/01/18 11:46 Dose: 8 units Lactobacillus Acidophilus (Bacid -) 1 tab PO DAILY [facility] Last Admin: 10/01/18 11:49 Dose: 1 tab Lisinopril (Prinivil) 10 mg PO DAILY [facility] Last Admin: 10/01/18 09:00 Dose: 10 mg Methadone HCl (Dolophine -) 10 mg PO BID [facility] Last Admin: 10/01/18 09:00 Dose: 10 mg Metoprolol Tartrate (Lopressor Injection -) 5 mg IVPUSH Q4H PRN PRN Reason: HYPERTENSION Last Admin: 09/29/18 04:22 Dose: 5 mg Morphine Sulfate (Morphine Sulfate) 2 mg IVPUSH Q6H PRN PRN Reason: PAIN LEVEL 6-10 Ondansetron HCl (Zofran Injection) 4 mg IVPUSH Q6H PRN PRN Reason: NAUSEA Potassium Phos/Sodium Phos (Phos-Nak Packet -) 1 packet PO BID [facility] Stop: 10/03/18 22:01 Last Admin: 10/01/18 10:01 Dose: 1 packet Senna (Senna -) 1 tab PO BID [facility] Last Admin: 10/01/18 09:00 Dose: 1 tab Trazodone HCl (Desyrel -) 100 mg PO HS [facility] Last Admin: 09/30/18 21:48 Dose: 100 mg ASSESSMENT AND PLAN: s/p Acute Respiratory Failure Lumbar Scoliosis s/p L2-S1 Laminectomies/Interbody Cage Placements/Pedicle Screws r/o Acalculous Cholecystitis Acute Kidney Injury improving HTN DM Hyperlipidmemia Bipolar Disorder Methadone Maintenance - continue antibiotics - trend LFTs - can defer cholecystectomy at this time as pt appears to be clinically improving - monitor drain output - replete lytes - monitor urine output, creatinine - PO as tolerated - DVT prophylaxis - can monitor on floor
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
[2018-10-01] MEDS ORDERED: NAPH,MB-DB/K PH,MBDB POWDER PACKET PO SCH (14:00)
[2018-10-01] MEDS: HEPARIN NA (PORCINE) 5,000 UNITS/ML 1ML VIAL SQ SCH ×2 (14:11→22:03)
--- NOTE | 2018-10-01 14:14 | PN ---
Progress Note, Physician - Current Medication List Current Medications: Active Medications Clonazepam (Klonopin -) 1 mg PO TID [facility] Last Admin: 10/01/18 14:10 Dose: 1 mg Diphenhydramine HCl (Benadryl -) 25 mg PO Q6H PRN PRN Reason: FOR ITCHING Docusate Sodium (Colace Liquid -) 100 mg PO DAILY PRN PRN Reason: CONSTIPATION Ferrous Sulfate (Feosol -) 325 mg PO DAILY [facility] Last Admin: 10/01/18 09:00 Dose: 325 mg Folic Acid (Folic Acid -) 1 mg PO DAILY [facility] Last Admin: 10/01/18 09:00 Dose: 1 mg Gabapentin (Neurontin -) 600 mg PO TID [facility] Last Admin: 10/01/18 14:10 Dose: 600 mg Heparin Sodium (Porcine) (Heparin -) 5,000 unit SQ TID [facility] Last Admin: 10/01/18 14:11 Dose: 5,000 unit Metronidazole (Flagyl 500mg Premixed Ivpb -) 500 mg in 100 mls @ 100 mls/hr IVPB Q8H-IV YESY Last Admin: 10/01/18 09:00 Dose: 100 mls/hr Sodium Chloride (Normal Saline -) 1,000 mls @ 42 mls/hr IV ASDIR [facility] Last Admin: 09/30/18 12:26 Dose: 42 mls/hr Piperacillin Sod/Tazobactam (Sod 3.375 gm/ Dextrose) 50 mls @ 100 mls/hr IVPB Q8H-IV [facility]; Protocol Last Admin: 10/01/18 09:00 Dose: 100 mls/hr Insulin Aspart (Novolog Vial Sliding Scale -) 1 vial SQ Q6HPO [facility]; Protocol Last Admin: 10/01/18 11:46 Dose: 8 units Lactobacillus Acidophilus (Bacid -) 1 tab PO DAILY [facility] Last Admin: 10/01/18 11:49 Dose: 1 tab Lisinopril (Prinivil) 10 mg PO DAILY [facility] Last Admin: 10/01/18 09:00 Dose: 10 mg Methadone HCl (Dolophine -) 10 mg PO BID [facility] Last Admin: 10/01/18 09:00 Dose: 10 mg Metoprolol Tartrate (Lopressor Injection -) 5 mg IVPUSH Q4H PRN PRN Reason: HYPERTENSION Last Admin: 09/29/18 04:22 Dose: 5 mg Morphine Sulfate (Morphine Sulfate) 2 mg IVPUSH Q6H PRN PRN Reason: PAIN LEVEL 6-10 Ondansetron HCl (Zofran Injection) 4 mg IVPUSH Q6H PRN PRN Reason: NAUSEA Potassium Phos/Sodium Phos (Phos-Nak Packet -) 1 packet PO BID [facility] Stop: 10/03/18 22:01 Last Admin: 10/01/18 10:01 Dose: 1 packet Senna (Senna -) 1 tab PO BID [facility] Last Admin: 10/01/18 09:00 Dose: 1 tab Trazodone HCl (Desyrel -) 100 mg PO [facility] Last Admin: 09/30/18 21:48 Dose: 100 mg - Objective Vital Signs: Vital Signs Temperature 98.4 F 10/01/18 06:00 Pulse Rate 86 10/01/18 12:00 Respiratory Rate 20 10/01/18 12:00 Blood Pressure 150/72 10/01/18 12:00 O2 Sat by Pulse Oximetry (%) 98 09/29/18 10:05 Labs: CBC, BMP 10/01/18 05:30 10/01/18 05:30 INR, PTT INR 1.25 (0.83-1.09) H 09/26/18 20:15
--- NOTE | 2018-10-01 14:40 | PN ---
Progress Note, Physician History of Present Illness: Pt seen and examined at bedside. SHe is awake and alert. She denies shortness of breath. - Current Medication List Current Medications: Active Medications Clonazepam (Klonopin -) 1 mg PO TID [facility] Last Admin: 10/01/18 14:10 Dose: 1 mg Diphenhydramine HCl (Benadryl -) 25 mg PO Q6H PRN PRN Reason: FOR ITCHING Docusate Sodium (Colace Liquid -) 100 mg PO DAILY PRN PRN Reason: CONSTIPATION Ferrous Sulfate (Feosol -) 325 mg PO DAILY [facility] Last Admin: 10/01/18 09:00 Dose: 325 mg Folic Acid (Folic Acid -) 1 mg PO DAILY [facility] Last Admin: 10/01/18 09:00 Dose: 1 mg Gabapentin (Neurontin -) 600 mg PO TID [facility] Last Admin: 10/01/18 14:10 Dose: 600 mg Heparin Sodium (Porcine) (Heparin -) 5,000 unit SQ TID [facility] Last Admin: 10/01/18 14:11 Dose: 5,000 unit Metronidazole (Flagyl 500mg Premixed Ivpb -) 500 mg in 100 mls @ 100 mls/hr IVPB Q8H-IV [facility] Last Admin: 10/01/18 09:00 Dose: 100 mls/hr Sodium Chloride (Normal Saline -) 1,000 mls @ 42 mls/hr IV ASDIR [facility] Last Admin: 09/30/18 12:26 Dose: 42 mls/hr Piperacillin Sod/Tazobactam (Sod 3.375 gm/ Dextrose) 50 mls @ 100 mls/hr IVPB Q8H-IV [facility]; Protocol Last Admin: 10/01/18 09:00 Dose: 100 mls/hr Insulin Aspart (Novolog Vial Sliding Scale -) 1 vial SQ Q6HPO [facility]; Protocol Last Admin: 10/01/18 11:46 Dose: 8 units Lactobacillus Acidophilus (Bacid -) 1 tab PO DAILY [facility] Last Admin: 10/01/18 11:49 Dose: 1 tab Lisinopril (Prinivil) 10 mg PO DAILY [facility] Last Admin: 10/01/18 09:00 Dose: 10 mg Methadone HCl (Dolophine -) 10 mg PO BID [facility] Last Admin: 10/01/18 09:00 Dose: 10 mg Metoprolol Tartrate (Lopressor Injection -) 5 mg IVPUSH Q4H PRN PRN Reason: HYPERTENSION Last Admin: 09/29/18 04:22 Dose: 5 mg Morphine Sulfate (Morphine Sulfate) 2 mg IVPUSH Q6H PRN PRN Reason: PAIN LEVEL 6-10 Ondansetron HCl (Zofran Injection) 4 mg IVPUSH Q6H PRN PRN Reason: NAUSEA Potassium Phos/Sodium Phos (Phos-Nak Packet -) 1 packet PO BID [facility] Stop: 10/03/18 22:01 Last Admin: 10/01/18 10:01 Dose: 1 packet Senna (Senna -) 1 tab PO BID [facility] Last Admin: 10/01/18 09:00 Dose: 1 tab Trazodone HCl (Desyrel -) 100 mg PO HS [facility] Last Admin: 09/30/18 21:48 Dose: 100 mg - Objective Vital Signs: Vital Signs Temperature 98.4 F 10/01/18 06:00 Pulse Rate 86 10/01/18 12:00 Respiratory Rate 20 10/01/18 12:00 Blood Pressure 150/72 10/01/18 12:00 O2 Sat by Pulse Oximetry (%) 98 09/29/18 10:05 Constitutional: Yes: Calm Eyes: Yes: Conjunctiva Clear Cardiovascular: Yes: S1, S2 Respiratory: Yes: CTA Bilaterally Gastrointestinal: Yes: Soft, Abdomen, Obese Genitourinary: Yes: Gonzalez Present Edema: LUE: Trace, RUE: Trace Neurological: Yes: Oriented Psychiatric: Yes: Oriented Labs: CBC, BMP 10/01/18 05:30 10/01/18 05:30 INR, PTT INR 1.25 (0.83-1.09) H 09/26/18 20:15 Assessment/Plan Current Medications Generic Name Dose Route Start Last Admin Trade Name Freq PRN Reason Stop Dose Admin Clonazepam 1 mg 09/30/18 22:00 10/01/18 14:10 Klonopin - PO 1 mg TID [facility] Administration Diphenhydramine HCl 25 mg 09/26/18 16:13 Benadryl - PO Q6H PRN FOR ITCHING Docusate Sodium 100 mg 09/29/18 14:53 Colace Liquid - PO DAILY PRN CONSTIPATION Ferrous Sulfate 325 mg 09/27/18 10:00 10/01/18 09:00 Feosol - PO 325 mg DAILY [facility] Administration Folic Acid 1 mg 09/27/18 10:00 10/01/18 09:00 Folic Acid - PO 1 mg DAILY [facility] Administration Gabapentin 600 mg 09/29/18 15:00 10/01/18 14:10 Neurontin - PO 600 mg TID [facility] Administration Heparin Sodium (Porcine) 5,000 unit 10/01/18 14:00 10/01/18 14:11 Heparin - SQ 5,000 unit TID [facility] Administration Metronidazole 500 mg in 100 mls @ 100 mls/hr 09/27/18 18:00 10/01/18 09:00 Flagyl 500mg Premixed Ivpb - IVPB 100 mls/hr Q8H-IV [facility] Administration Sodium Chloride 1,000 mls @ 42 mls/hr 09/28/18 12:00 09/30/18 12:26 Normal Saline - IV 42 mls/hr ASDIR [facility] Administration Piperacillin Sod/Tazobactam 50 mls @ 100 mls/hr 09/29/18 02:00 10/01/18 09:00 Sod 3.375 gm/ Dextrose IVPB 100 mls/hr Q8H-IV [facility] Administration Protocol Insulin Aspart 1 vial 09/28/18 14:00 10/01/18 11:46 Novolog Vial Sliding Scale - SQ 8 units Q6HPO [facility] Administration Protocol Lactobacillus Acidophilus 1 tab 10/01/18 10:45 10/01/18 11:49 Bacid - PO 1 tab DAILY [facility] Administration Lisinopril 10 mg 10/01/18 10:00 10/01/18 09:00 Prinivil PO 10 mg DAILY [facility] Administration Methadone HCl 10 mg 09/30/18 20:00 10/01/18 09:00 Dolophine - PO 10 mg BID [facility] Administration Metoprolol Tartrate 5 mg 09/29/18 04:00 09/29/18 04:22 Lopressor Injection - IVPUSH 5 mg Q4H PRN Administration HYPERTENSION Morphine Sulfate 2 mg 10/01/18 08:21 Morphine Sulfate IVPUSH Q6H PRN PAIN LEVEL 6-10 Ondansetron HCl 4 mg 09/26/18 16:13 Zofran Injection IVPUSH Q6H PRN NAUSEA Potassium Phos/Sodium Phos 1 packet 10/01/18 10:00 10/01/18 10:01 Phos-Nak Packet - PO 04/04/19 22:01 1 packet BID [facility] Administration Senna 1 tab 09/22/18 15:30 10/01/18 09:00 Senna - PO 1 tab BID [facility] Administration Trazodone HCl 100 mg 09/28/18 22:00 09/30/18 21:48 Desyrel - PO 100 mg HS [facility] Administration Impression 1. RUBÉN 2. hyperkalemia 3. s/p spinal fusion/laminectomy 4. resp failure 5. HTN 6. DM 7. obesity 8. bipolar 9. opioid dependence Plan - renal function stable - avoid hypotension - avoid nsaids - monitor lytes - will follow PRN
[2018-10-01] MEDS: SODIUM CHLORIDE 1,000 ML IV SCH (20:44)
[2018-10-01] MEDS: traZODone HCL 100 MG TABLET (FP) PO SCH (22:03)
[2018-10-02] MEDS: PIPERACILLIN/TAZOB 3.375 GM 3.375 GM in DEXTROSE 5%-WATER - 50 ML IVPB SCH ×2 (02:00→09:15)
[2018-10-02] MEDS ORDERED: DEXTROSE 5%-WATER - 50 ML IVPB ONE ×2 (03:42→09:11)
[2018-10-02] MEDS ORDERED: PIPERACILLIN/TAZOBACTAM 3.375 GM VIAL IVPB ONE ×2 (03:42→09:11)
[2018-10-02] MEDS: clonazePAM 0.5 MG TABLET PO SCH ×3 (06:36→22:24)
[2018-10-02] MEDS: HEPARIN NA (PORCINE) 5,000 UNITS/ML 1ML VIAL SQ SCH ×3 (06:37→22:29)
[2018-10-02] MEDS: INSULIN SLIDING SCALE (NOVOLOG) 1 VIAL SQ SCH ×4 (06:37→21:38)
[2018-10-02] MEDS: GABAPENTIN 300 MG CAPSULE (FP) PO SCH ×3 (06:37→22:25)
[2018-10-02 06:41] LABS: BASO % 0.2 % (0-2.0); EOS % 2.6 % (0-4.5); HEMATOCRIT 29.6 % (32.4-45.2); HEMOGLOBIN 9.8 GM/dL (10.7-15.3); LYMPH % 27.5 % (8-40); MCH 29.5 pg (25.7-33.7); MCHC 33.1 g/dl (32.0-36.0); MEAN CELL VOLUME 89.1 fl (80-96); MEAN PLT VOLUME 9.3 fl (7.5-11.1); MONO % 6.1 % (3.8-10.2); NEUT % 63.6 % (42.8-82.8); PLATELET COUNT 158 K/MM3 (134-434); RBC 3.32 M/mm3 (3.60-5.2); RDW 14.3 % (11.6-15.6); WHITE BLOOD COUNT 10.6 K/mm3 (4.0-10.0)
[2018-10-02 07:15] LABS: ALBUMIN 2.4 g/dl (3.4-5.0); ALK PHOS 53 U/L (45-117); ANION GAP 5 MMOL/L (8-16); BILIRUBIN,TOTAL 0.4 mg/dL (0.2-1); BLOOD UREA NITROGEN 14 mg/dL (7-18); CHLORIDE 104 mmol/L (98-107); CO2 30 mmol/L (21-32); CREATININE 0.5 mg/dL (0.55-1.3); GLUCOSE,RANDOM 175 mg/dL (74-106); MAGNESIUM 2.4 mg/dL (1.8-2.4); PHOSPHOROUS 2.8 mg/dL (2.5-4.9); SGOT/AST 28 U/L (15-37); SGPT/ALT 38 U/L (13-61); SODIUM 140 mmol/L (136-145); TOT PROT 5.3 g/dl (6.4-8.2)
--- NOTE | 2018-10-02 08:39 | PN ---
Progress Note (short form) - Note Progress Note: 73yo F s/p L2-S1 PLIF, pt seen and examined in the ICU. Pt complains of continued back pain, states is not improved. Pt has not been OOB/ambulate. Pt denies fever, chills, n/v. Pt denies weakness or numbness. Last Vital Signs Temp Pulse Resp BP Pulse Ox 98.2 F 80 18 126/77 98 10/02/18 06:00 10/02/18 06:00 10/02/18 06:00 10/02/18 06:00 09/29/18 10:05 CBC, BMP 10/02/18 05:30 10/02/18 05:30 PE: Gen: A&O x 3 Resp: breathing comfortably Abd: soft, nondistended, nontender Back: drain in place with serosanguinous drainage Output: 150ml Ext: no numbness, unable to assess weakness due to lack of effort. Problem List - Problems (1) Degenerative scoliosis in adult patient Assessment/Plan: Plan -encourage OOB/ambulate -pain control -will consider pulling drain later today -DVT ppx -pt is cleared for placement from neurosurgery standpoint Code(s): M41.50 - OTHER SECONDARY SCOLIOSIS, SITE UNSPECIFIED
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
[2018-10-02] MEDS: FOLIC ACID 1 MG TABLET (FP) PO SCH (09:14)
[2018-10-02] MEDS: METHADONE HCL 10 MG PO SCH ×2 (09:14→22:28)
[2018-10-02] MEDS: LISINOPRIL 10 MG TABLET (FP) PO SCH (09:14)
[2018-10-02] MEDS: LACTOBACILLUS ACIDOPHILUS 1 TABLET PO SCH (09:15)
[2018-10-02] MEDS: NAPH,MB-DB/K PH,MBDB POWDER PACKET PO SCH ×2 (09:15→22:33)
[2018-10-02] MEDS: SENNOSIDES 8.6MG TABLET (FP) PO SCH ×2 (09:15→22:24)
[2018-10-02] MEDS: FERROUS SO4 325 MG TABLET (FP) PO SCH (09:15)
[2018-10-02] MEDS ORDERED: NAPH,MB-DB/K PH,MBDB POWDER PACKET PO ONE (09:31)
--- NOTE | 2018-10-02 10:36 | PN ---
Teaching Attending Note Name of Resident: Adrian Tamez ATTENDING PHYSICIAN STATEMENT I saw and evaluated the patient. I reviewed the resident's note and discussed the case with the resident. I agree with the resident's findings and plan as documented. SUBJECTIVE: reports continued back pain but controlled with medication. denies Cp, SOB, fever, chills, N/V/C/D. tolerating diet OBJECTIVE: Last Vital Signs Temp Pulse Resp BP Pulse Ox 98.2 F 88 22 H 152/64 98 10/02/18 06:00 10/02/18 08:00 10/02/18 08:00 10/02/18 08:00 09/29/18 10:05 General NAD CV S1 S2 + Lungs CTA anteriorly Abdomen soft NT/ND neg love sign, obese Extremities trace pitting edema ASSESSMENT AND PLAN: 73yo F wtih PMH HTN, dyslipidemia, DM, bipolar and chronic back pain on methadone presented to the ER wtih back pain and LE weakness and found on CT to have T11 compression fracture of indeterminate age and multilevel disc herniations and underwent laminectomy on 09/26/18. Course complicated by large volume blood loss and development of questionable acute cholecystitis 1. Acute Respiratory failure- due to developing sepsis due to hypoperfusion intra-operatively. now extubated. now saturating well on NC. CT negative for acute pathology. 2. Sepsis due to suspected acute cholecystitis- Elevated LFT which could have been due to hypoperfusion which are now normalized. treated medically with Zosyn and Flagyl day 6. surgery was consulted which deferred surgical intervention. agree with medical management. pt is asymptomatic. can have repeat u/s vs HIDA to further evaluate at outpatient. will d/w ID about abx duration. ID, surgery on board 3. Acute blood loss anemia- due to surgery. s/p 4 units PRBC this hospital stay. no further bleeding noted. Hgb stable. no indication for transfusion 4. RUBÉN- due to sepsis and hypoperfusion. now resolved. nephro on board 5. Hyperkalemia- due to RUBÉN. resolved 6. Hypophosphatemia- neutraphos 7. T11 compression fracture- s/p Exploration spinal fusion, removal of hardware , L2-S1 laminectomies with interbody cage placement x2, deformity correction, L2 -S1, pedicle screws on 09/26. titrate off morphine IV. cont methadone BID. will need GUSTAVO. neurosurg and pain management on board 8. DM- hold oral agents. cont BGM/ISS 9. bipolar- cont home regimen 10. DVT ppx-hep sq 11. MICU- stable for transfer to med-surg for several days, no beds available 12. Will benefit from GUSTAVO, likely discharge in next 24-48H The care of this patient involved high complexity decision making to prevent further life threatening deterioration of the patient's condition and/or to evaluate & treat vital organ system(s) failure or risk of failure. 35 mins
[2018-10-02] MEDS: POLYETHYLENE GLYCOL 3350 119 GM BTL PO SCH (11:50)
--- NOTE | 2018-10-02 12:03 | PN ---
Teaching Attending Note Name of Resident: Kayla Clifford ATTENDING PHYSICIAN STATEMENT I saw and evaluated the patient. I reviewed the resident's note and discussed the case with the resident. I agree with the resident's findings and plan as documented. SUBJECTIVE: Pt seen and examined in the ICU. Feels about the same. Tolerating PO. No fevers recorded. OBJECTIVE: Vital Signs Period Temp Pulse Resp BP Sys/Singletary Pulse Ox Last 24 Hr 98.2 F-99.3 F 66-104 16-22 86-181/52-85 Intake & Output 09/29/18 09/30/18 10/01/18 10/02/18 23:59 23:59 23:59 23:59 Intake Total 1189 2350 2306 754 Output Total 1425 1900 740 150 Balance -552 213 2624 604 Weight 89.494 kg 89.494 kg 89.494 kg 89.993 kg Gen: NAD at rest Heart: RRR Lung: decreased breath sounds at the bases Abd: soft, nontender Ext: + edema CBC, BMP 10/02/18 05:30 10/02/18 05:30 Active Medications Clonazepam (Klonopin -) 1 mg PO TID [facility] Last Admin: 10/02/18 06:36 Dose: 1 mg Diphenhydramine HCl (Benadryl -) 25 mg PO Q6H PRN PRN Reason: FOR ITCHING Docusate Sodium (Colace Liquid -) 100 mg PO DAILY PRN PRN Reason: CONSTIPATION Ferrous Sulfate (Feosol -) 325 mg PO DAILY [facility] Last Admin: 10/02/18 09:15 Dose: 325 mg Folic Acid (Folic Acid -) 1 mg PO DAILY [facility] Last Admin: 10/02/18 09:14 Dose: 1 mg Gabapentin (Neurontin -) 600 mg PO TID [facility] Last Admin: 10/02/18 06:37 Dose: 600 mg Heparin Sodium (Porcine) (Heparin -) 5,000 unit SQ TID [facility] Last Admin: 10/02/18 06:37 Dose: 5,000 unit Metronidazole (Flagyl 500mg Premixed Ivpb -) 500 mg in 100 mls @ 100 mls/hr IVPB Q8H-IV [facility] Last Admin: 10/02/18 09:15 Dose: 100 mls/hr Sodium Chloride (Normal Saline -) 1,000 mls @ 42 mls/hr IV ASDIR [facility] Last Admin: 10/01/18 20:44 Dose: Not Given Piperacillin Sod/Tazobactam (Sod 3.375 gm/ Dextrose) 50 mls @ 100 mls/hr IVPB Q8H-IV [facility]; Protocol Last Admin: 10/02/18 09:15 Dose: 100 mls/hr Insulin Aspart (Novolog Vial Sliding Scale -) 1 vial SQ ACHS [facility]; Protocol Last Admin: 10/02/18 11:33 Dose: 14 units Lactobacillus Acidophilus (Bacid -) 1 tab PO DAILY [facility] Last Admin: 10/02/18 09:15 Dose: 1 tab Lisinopril (Prinivil) 10 mg PO DAILY [facility] Last Admin: 10/02/18 09:14 Dose: 10 mg Methadone HCl (Dolophine -) 10 mg PO BID [facility] Last Admin: 10/02/18 09:14 Dose: 10 mg Metoprolol Tartrate (Lopressor Injection -) 5 mg IVPUSH Q4H PRN PRN Reason: HYPERTENSION Last Admin: 09/29/18 04:22 Dose: 5 mg Morphine Sulfate (Morphine Sulfate) 2 mg IVPUSH Q6H PRN PRN Reason: PAIN LEVEL 6-10 Ondansetron HCl (Zofran Injection) 4 mg IVPUSH Q6H PRN PRN Reason: NAUSEA Polyethylene Glycol (Miralax (For Daily Use) -) 17 gm PO DAILY [facility] Last Admin: 10/02/18 11:50 Dose: 17 mg Potassium Phos/Sodium Phos (Phos-Nak Packet -) 1 packet PO BID [facility] Stop: 10/03/18 22:01 Last Admin: 10/02/18 09:15 Dose: 1 packet Senna (Senna -) 1 tab PO BID [facility] Last Admin: 10/02/18 09:15 Dose: 1 tab Trazodone HCl (Desyrel -) 100 mg PO HS [facility] Last Admin: 10/01/18 22:03 Dose: 100 mg ASSESSMENT AND PLAN: s/p Acute Respiratory Failure Lumbar Scoliosis s/p L2-S1 Laminectomies/Interbody Cage Placements/Pedicle Screws r/o Acalculous Cholecystitis Acute Kidney Injury improving HTN DM Hyperlipidmemia Bipolar Disorder Methadone Maintenance - continue antibiotics - trend LFTs - can defer cholecystectomy at this time as pt appears to be clinically improving - drain per surgery - replete lytes - monitor urine output, creatinine - PO as tolerated - rehab/PT - DVT prophylaxis - can monitor on floor
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
[2018-10-02] MEDS: SODIUM CHLORIDE 1,000 ML IV SCH (17:19)
[2018-10-02] MEDS ORDERED: AMOX TR/POT CLAV 875MG/125MG TABLETS (FP) PO ONE (18:00)
[2018-10-02] MEDS ORDERED: diphenhydrAMINE HCL 25 MG CAPSULE (FP) PO PRN (21:01)
[2018-10-02] MEDS ORDERED: DOCUSATE NA 100 MG/10 ML UNIT-DOSE CUPS PO PRN (21:01)
[2018-10-02] MEDS ORDERED: ONDANSETRON 4 MG/2 ML VIAL IVPUSH PRN (21:01)
[2018-10-02] MEDS ORDERED: METOPROLOL TARTRATE 5 MG/5 ML VIAL IVPB PRN (21:01)
[2018-10-02] MEDS: METHADONE HCL 10 MG TABLET PO SCH (22:00)
[2018-10-02] MEDS: traZODone HCL 50 MG TABLET (FP) PO SCH (22:24)
[2018-10-03] MEDS: HEPARIN NA (PORCINE) 5,000 UNITS/ML 1ML VIAL SQ SCH ×3 (05:53→21:27)
[2018-10-03] MEDS: clonazePAM 0.5 MG TABLET PO SCH ×3 (05:58→21:28)
[2018-10-03] MEDS: GABAPENTIN 300 MG CAPSULE (FP) PO SCH (05:58)
[2018-10-03] MEDS: INSULIN SLIDING SCALE (NOVOLOG) 1 VIAL SQ SCH ×3 (06:03→21:24)
[2018-10-03 06:13] LABS: BASO % 0.2 % (0-2.0); EOS % 0.5 % (0-4.5); HEMATOCRIT 28.4 % (32.4-45.2); HEMOGLOBIN 9.4 GM/dL (10.7-15.3); LYMPH % 17.9 % (8-40); MCHC 32.9 g/dl (32.0-36.0); MEAN CELL VOLUME 88.1 fl (80-96); MEAN PLT VOLUME 9.4 fl (7.5-11.1); MONO % 4.7 % (3.8-10.2); NEUT % 76.7 % (42.8-82.8); PLATELET COUNT 188 K/MM3 (134-434); RBC 3.22 M/mm3 (3.60-5.2); RDW 14.5 % (11.6-15.6); WHITE BLOOD COUNT 11.4 K/mm3 (4.0-10.0)
[2018-10-03 06:38] LABS: ALBUMIN 2.4 g/dl (3.4-5.0); ALK PHOS 60 U/L (45-117); ANION GAP 7 MMOL/L (8-16); BILIRUBIN,TOTAL 0.4 mg/dL (0.2-1); BLOOD UREA NITROGEN 11 mg/dL (7-18); CALCIUM 7.6 mg/dL (8.5-10.1); CHLORIDE 103 mmol/L (98-107); CO2 29 mmol/L (21-32); CREATININE 0.4 mg/dL (0.55-1.3); GLUCOSE,RANDOM 227 mg/dL (74-106); MAGNESIUM 2.1 mg/dL (1.8-2.4); PHOSPHOROUS 2.1 mg/dL (2.5-4.9); POTASSIUM 4.2 mmol/L (3.5-5.1); SGOT/AST 25 U/L (15-37); SGPT/ALT 35 U/L (13-61); SODIUM 139 mmol/L (136-145); TOT PROT 5.5 g/dl (6.4-8.2)
--- NOTE | 2018-10-03 07:33 | PN ---
Progress Note (short form) - Note Progress Note: POD #7 Alert. Transferred to floor yesterday. No acute events per RN notes over past 24 hours. PT notes reviewed...pt not participating in her sessions as she feels weak. Denies n/v/f/c, CP, palpitations, SOB, SIMENTAL Last Vital Signs Temp Pulse Resp BP Pulse Ox 99.9 F H 117 H 20 161/86 96 10/03/18 06:00 10/03/18 06:00 10/03/18 06:00 10/03/18 06:00 10/02/18 21:00 CBC, BMP 10/03/18 05:40 10/03/18 05:40 Gen: nad ABD: obese habitus, soft. nt. Back: Lumbar dressing c/d/i. RITU w/ minimal output Motor: GMNVI bilat LE: SCDs bilat. Soft. nt. Problem List - Problems (1) Degenerative scoliosis in adult patient Assessment/Plan: POD #7 s/p Exploration spinal fusion, removal of hardware, L2-S1 laminectomies with interbody cage placement x2, deformity correction, L2-S1 pedicle screws Cont OOB and mobilize with PT Pain management as ordered RITU dc'd on rounds ABD binder for support Per ID --> PO Augmentin x7 days Tight glycemic control Cleared for DC to SNF vs. REHAB from Neurosurgery Code(s): M41.50 - OTHER SECONDARY SCOLIOSIS, SITE UNSPECIFIED (2) Diabetes mellitus Code(s): E11.9 - TYPE 2 DIABETES MELLITUS WITHOUT COMPLICATIONS (3) Methadone use Code(s): F11.20 - OPIOID DEPENDENCE, UNCOMPLICATED
[2018-10-03] MEDS: AMOX TR/POT CLAV 875MG/125MG TABLETS (FP) PO SCH ×2 (08:42→16:41)
[2018-10-03] MEDS: FERROUS SO4 325 MG TABLET (FP) PO SCH (08:42)
[2018-10-03] MEDS ORDERED: SODIUM PHOSPHATE - 15 MM in SODIUM CHLORIDE 250 ML IVPB ONE (09:15)
[2018-10-03] MEDS: FOLIC ACID 1 MG TABLET (FP) PO SCH (09:31)
[2018-10-03] MEDS: SENNOSIDES 8.6MG TABLET (FP) PO SCH ×2 (09:31→21:28)
[2018-10-03] MEDS: METHADONE HCL 10 MG TABLET PO SCH ×2 (09:31→21:27)
[2018-10-03] MEDS: LACTOBACILLUS ACIDOPHILUS 1 TABLET PO SCH (09:31)
[2018-10-03] MEDS: NAPH,MB-DB/K PH,MBDB POWDER PACKET PO SCH ×2 (09:32→21:27)
[2018-10-03] MEDS: POLYETHYLENE GLYCOL 3350 119 GM BTL PO SCH (09:34)
[2018-10-03] MEDS ORDERED: LISINOPRIL 10 MG TABLET (FP) PO SCH (10:00)
[2018-10-03] MEDS ORDERED: INSULIN SLIDING SCALE (NOVOLOG) 1 VIAL SQ SCH (10:22)
[2018-10-03] MEDS ORDERED: GABAPENTIN 300 MG CAPSULE (FP) PO SCH (10:40)
--- NOTE | 2018-10-03 10:46 | PN ---
Teaching Attending Note Name of Resident: Adrian Tamez ATTENDING PHYSICIAN STATEMENT I saw and evaluated the patient. I reviewed the resident's note and discussed the case with the resident. I agree with the resident's findings and plan as documented. SUBJECTIVE:asymptomatic. denies CP, SOB, fever, chills N/V/C/D OBJECTIVE: Last Vital Signs Temp Pulse Resp BP Pulse Ox 98.9 F 98 H 20 158/82 96 10/03/18 10:00 10/03/18 10:10/03/18 10:10/03/18 10:10/02/18 21:00 General lethargic, easily awakens to verbal stimuli CV S1 S2 + Lungs CTA anteriorly Abdomen soft NT/ND neg love sign, obese Extremities trace pitting edema ASSESSMENT AND PLAN: 73yo F wtih PMH HTN, dyslipidemia, DM, bipolar and chronic back pain on methadone presented to the ER wtih back pain and LE weakness and found on CT to have T11 compression fracture of indeterminate age and multilevel disc herniations and underwent laminectomy on 09/26/18. Course complicated by large volume blood loss and development of questionable acute cholecystitis 1. Acute Respiratory failure- due to developing sepsis due to hypoperfusion intra-operatively. now extubated. now saturating well on NC. CT negative for acute pathology. 2. Sepsis due to suspected acute cholecystitis- Elevated LFT which could have been due to hypoperfusion which are now normalized. treated medically with Zosyn and Flagyl day 7 and will switch to agumentin for 7 days. can have repeat u/s vs HIDA to further evaluate at outpatient. ID, surgery on board 3. Acute blood loss anemia- due to surgery. s/p 4 units PRBC this hospital stay. no further bleeding noted. Hgb stable. no indication for transfusion 4. RUBÉN- due to sepsis and hypoperfusion. now resolved. nephro on board 5. Hyperkalemia- due to RUBÉN. resolved 6. Hypophosphatemia- neutraphos 7. T11 compression fracture- s/p Exploration spinal fusion, removal of hardware , L2-S1 laminectomies with interbody cage placement x2, deformity correction, L2 -S1, pedicle screws on 09/26. titrate off morphine IV. cont methadone BID. will need GUSTAVO. neurosurg and pain management on board. RITU removed today 8. DM- uncontrolled. will start levemir tonight and titrate to optimize control 9. bipolar- seems more lethargic today. will reduce daytime medications which can aid in sedation. clonazepam and gabapentin, if anxiety or pain worsens can consider increasing back to home dose 10. DVT ppx-hep sq 11. medically optimized for discharge. awaiting GUSTAVO bed
[2018-10-03] MEDS ORDERED: INSULIN (NOVOLOG) ASPART 100 UNITS/ML 10ML VIAL ONE ×2 (11:12→20:45)
[2018-10-03] MEDS: GABAPENTIN 400 MG CAPSULE (FP) PO SCH ×3 (12:08→21:28)
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
--- NOTE | 2018-10-03 15:23 | PN ---
Progress Note, Physician - Current Medication List Current Medications: Active Medications Amoxicillin/Clavulanate Potassium (Augmentin - 875mg Tablet) 1 tab PO BID@0800, 1730 [facility] Stop: 10/09/18 07:59 Last Admin: 10/03/18 08:42 Dose: 1 tab Clonazepam (Klonopin -) 0.5 mg PO TID [facility] Last Admin: 10/03/18 13:36 Dose: 0.5 mg Diphenhydramine HCl (Benadryl -) 25 mg PO Q6H PRN PRN Reason: FOR ITCHING Docusate Sodium (Colace Liquid -) 300 mg PO HS [facility] Ferrous Sulfate (Feosol -) 325 mg PO DAILY@0800 [facility] Last Admin: 10/03/18 08:42 Dose: 325 mg Folic Acid (Folic Acid -) 1 mg PO DAILY [facility] Last Admin: 10/03/18 09:31 Dose: 1 mg Gabapentin (Neurontin -) 400 mg PO TID [facility] Last Admin: 10/03/18 13:35 Dose: Not Given Heparin Sodium (Porcine) (Heparin -) 5,000 unit SQ TID [facility] Last Admin: 10/03/18 13:36 Dose: 5,000 unit Insulin Aspart (Novolog Vial Sliding Scale -) 1 vial SQ [facility]; Protocol Insulin Detemir (Levemir Vial) 10 units SQ [facility] Lactobacillus Acidophilus (Bacid -) 1 tab PO DAILY [facility] Last Admin: 10/03/18 09:31 Dose: 1 tab Lisinopril (Prinivil) 10 mg PO DAILY [facility] Last Admin: 10/03/18 09:32 Dose: 10 mg Methadone HCl (Dolophine -) 10 mg PO BID [facility] Last Admin: 10/03/18 09:31 Dose: 10 mg Ondansetron HCl (Zofran Injection) 4 mg IVPUSH Q6H PRN PRN Reason: NAUSEA Polyethylene Glycol (Miralax (For Daily Use) -) 17 gm PO DAILY [facility] Last Admin: 10/03/18 09:34 Dose: 17 mg Potassium Phos/Sodium Phos (Phos-Nak Packet -) 1 packet PO BID [facility] Stop: 10/03/18 22:01 Last Admin: 10/03/18 09:32 Dose: 1 packet Senna (Senna -) 1 tab PO BID [facility] Last Admin: 10/03/18 09:31 Dose: 1 tab Trazodone HCl (Desyrel -) 100 mg PO HS YESY Last Admin: 10/02/18 22:24 Dose: 100 mg - Objective Vital Signs: Vital Signs Temperature 99.1 F 10/03/18 14:59 Pulse Rate 106 H 10/03/18 14:59 Respiratory Rate 20 10/03/18 14:59 Blood Pressure 151/71 10/03/18 14:59 O2 Sat by Pulse Oximetry (%) 94 L 10/03/18 09:00 Labs: CBC, BMP 10/03/18 05:40 10/03/18 05:40 INR, PTT INR 1.25 (0.83-1.09) H 09/26/18 20:15
[2018-10-03] MEDS: traZODone HCL 50 MG TABLET (FP) PO SCH (21:28)
[2018-10-03] MEDS ORDERED: DOCUSATE NA 100 MG/10 ML UNIT-DOSE CUPS PO SCH (22:00)
[2018-10-03] MEDS ORDERED: INSULIN (LEVEMIR) 100 UNITS/ML UNITS SQ SCH (22:00)
[2018-10-04] MEDS: HEPARIN NA (PORCINE) 5,000 UNITS/ML 1ML VIAL SQ SCH (05:51)
[2018-10-04] MEDS: clonazePAM 0.5 MG TABLET PO SCH (05:51)
[2018-10-04] MEDS: GABAPENTIN 400 MG CAPSULE (FP) PO SCH (05:51)
[2018-10-04] MEDS: INSULIN SLIDING SCALE (NOVOLOG) 1 VIAL SQ SCH (06:18)
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
[2018-10-04] MEDS ORDERED: LISINOPRIL 20 MG TABLET (FP) PO SCH (07:45)
[2018-10-04] MEDS: AMOX TR/POT CLAV 875MG/125MG TABLETS (FP) PO SCH (08:10)
[2018-10-04] MEDS: FERROUS SO4 325 MG TABLET (FP) PO SCH (08:10)
[2018-10-04] MEDS: SENNOSIDES 8.6MG TABLET (FP) PO SCH (09:48)
[2018-10-04] MEDS: METHADONE HCL 10 MG TABLET PO SCH (09:48)
[2018-10-04] MEDS: LACTOBACILLUS ACIDOPHILUS 1 TABLET PO SCH (09:48)
[2018-10-04] MEDS: FOLIC ACID 1 MG TABLET (FP) PO SCH (09:48)
[2018-10-04] MEDS: POLYETHYLENE GLYCOL 3350 119 GM BTL PO SCH (09:50)
--- NOTE | 2018-10-04 10:44 | PN ---
Teaching Attending Note Name of Resident: Adrian Tamez ATTENDING PHYSICIAN STATEMENT I saw and evaluated the patient. I reviewed the resident's note and discussed the case with the resident. I agree with the resident's findings and plan as documented. SUBJECTIVE:asymptomatic. denies CP, SOB, fever, chills, N/V/C/D OBJECTIVE: Last Vital Signs Temp Pulse Resp BP Pulse Ox 98.9 F 95 H 20 155/83 96 10/04/18 06:15 10/04/18 06:15 10/04/18 06:15 10/04/18 06:15 10/04/18 09:00 General NAD, alert CV S1 S2 + Lungs CTA anteriorly Abdomen soft NT/ND neg love sign, obese Extremities trace pitting edema ASSESSMENT AND PLAN: 73yo F wtih PMH HTN, dyslipidemia, DM, bipolar and chronic back pain on methadone presented to the ER wtih back pain and LE weakness and found on CT to have T11 compression fracture of indeterminate age and multilevel disc herniations and underwent laminectomy on 09/26/18. Course complicated by large volume blood loss and development of questionable acute cholecystitis 1. Acute Respiratory failure- due to developing sepsis due to hypoperfusion intra-operatively. now extubated. now saturating well on NC. CT negative for acute pathology. 2. Sepsis due to suspected acute cholecystitis- Elevated LFT which could have been due to hypoperfusion which are now normalized. treated medically with Zosyn and Flagyl day 7 and now on agumentin for 7 days. can have repeat u/s vs HIDA to further evaluate at outpatient. ID, surgery on board 3. Acute blood loss anemia- due to surgery. s/p 4 units PRBC this hospital stay. no further bleeding noted. Hgb stable. no indication for transfusion 4. RUBÉN- due to sepsis and hypoperfusion. now resolved. nephro on board 5. Hyperkalemia- due to RUBÉN. resolved 6. Hypophosphatemia- neutraphos 7. T11 compression fracture- s/p Exploration spinal fusion, removal of hardware , L2-S1 laminectomies with interbody cage placement x2, deformity correction, L2 -S1, pedicle screws on 09/26. titrate off morphine IV. cont methadone BID. will need GUSTAVO. neurosurg and pain management on board. RITU removed/ will need to wear TSLO brace when out of bed >5mins 8. DM-improved. cont to titrate levemir to optimize sugar control 9. bipolar-more alert today after medications adjusted to prevent sedation. can continue to monitor and adjust further as needed. 10. DVT ppx-hep sq 11. plan for d/c today for [facility]
[2018-10-04 11:58] VITALS: BP 145/82; PULSE 97; TEMP 98.8
[2018-10-07 11:02] VITALS: BMI 32.9
--- NOTE | 2018-10-08 09:04 | SURG ---
Surgery Glass Mechanic Note Glass Mechanic: Nishant Ho PA-C Date of Service: 09/26/18 Diagnosis: Lumbar degenerative scoliosis Procedure: 1. Bilateral laminectomies L2/3 2. Bilateral laminectomies L3/4 3. Bilateral laminectomies L4/5 4. Bilateral reoperative exposure L5-S1 5. L2/3 transpedicular approach 6. L3/4 transpedicular approach 7. Fluroscopy 8. Exploration of spinal fusion 9. Interbody and posterior/lateral arthrodesis L2/3 10. Interbody cage L3/4 11. Interbody and posterior/lateral arthrodesis L3/4 12. Posterior/Lateral Arthrodesis L4/5 13. Posterior/Lateral Arthrodesis L5/S1 14. L2-S1 Posterior segmental Instrumentation (technically challenging) 15. Local autograft 16. L2 Osteotomy 17. L3 Osteotomy 18. L4 Osteotomy 19. L5 Osteotomy 20. S1 Osteotomy 21. Removal of posterior instrumentation 22. Deformity correction 23. Bilateral soft tisse advancement flaps (50cm2) I was present for the entirety of the operative procedure. For further detail, please refer to operative report. Visit type - Case Type Case Type: Scheduled
== END 2018-10-04 10:41 | DRG 453 ==
LOC: JER 20:28 → JERBED 09-21 03:16 → J5S 09-21 17:00 → OBSVTOIN 09-23 10:13 → JICU 09-26 16:57 → J5S 09-26 16:57 → JICU 09-26 18:54 → J8W 10-02 17:44
PROVIDERS: ADMIT Internal Medicine; ATTEND Internal Medicine
PROC: 0SG1071 Fusion of 2 or more Lumbar Vertebral Joints with Autologous Tissue Substitute, Posterior Approach, Posterior Column, Open Approach (ICD-10-PCS; 2018-09-26)
PROC: 0SG30AJ Fusion of Lumbosacral Joint with Interbody Fusion Device, Posterior Approach, Anterior Column, Open Approach (ICD-10-PCS; 2018-09-26)
PROC: 0SG3071 Fusion of Lumbosacral Joint with Autologous Tissue Substitute, Posterior Approach, Posterior Column, Open Approach (ICD-10-PCS; 2018-09-26)
PROC: 0SB20ZZ Excision of Lumbar Vertebral Disc, Open Approach (ICD-10-PCS; 2018-09-26)
PROC: 01NB0ZZ Release Lumbar Nerve, Open Approach (ICD-10-PCS; 2018-09-26)
PROC: 0SP004Z Removal of Internal Fixation Device from Lumbar Vertebral Joint, Open Approach (ICD-10-PCS; 2018-09-26)
PROC: 00JV0ZZ Inspection of Spinal Cord, Open Approach (ICD-10-PCS; 2018-09-26)
PROC: 0JX70ZZ Transfer Back Subcutaneous Tissue and Fascia, Open Approach (ICD-10-PCS; 2018-09-26)
PROC: B01BZZZ Fluoroscopy of Spinal Cord (ICD-10-PCS; 2018-09-26)
PROC: 30233N1 Transfusion of Nonautologous Red Blood Cells into Peripheral Vein, Percutaneous Approach (ICD-10-PCS; 2018-09-26)
PROC: 0SG10AJ Fusion of 2 or more Lumbar Vertebral Joints with Interbody Fusion Device, Posterior Approach, Anterior Column, Open Approach (ICD-10-PCS; principal; 2018-09-26 09:00)
DX: M41.86 Other forms of scoliosis, lumbar region (principal); J96.00 Acute respiratory failure, unspecified whether with hypoxia or hypercapnia; A41.9 Sepsis, unspecified organism; N17.9 Acute kidney failure, unspecified; D62 Acute posthemorrhagic anemia; K81.0 Acute cholecystitis; F11.20 Opioid dependence, uncomplicated; M48.54XA Collapsed vertebra, not elsewhere classified, thoracic region, initial encounter for fracture; F31.89 Other bipolar disorder; N39.0 Urinary tract infection, site not specified; M51.16 Intervertebral disc disorders with radiculopathy, lumbar region; R62.7 Adult failure to thrive; E11.9 Type 2 diabetes mellitus without complications; E78.5 Hyperlipidemia, unspecified; M54.89 Other dorsalgia; G89.21 Chronic pain due to trauma; R21 Rash and other nonspecific skin eruption; M47.26 Other spondylosis with radiculopathy, lumbar region; E11.65 Type 2 diabetes mellitus with hyperglycemia; E87.5 Hyperkalemia; D72.829 Elevated white blood cell count, unspecified; R00.0 Tachycardia, unspecified; E66.8 Other obesity; Z68.33 Body mass index [BMI] 33.0-33.9, adult; E83.39 Other disorders of phosphorus metabolism; R50.9 Fever, unspecified; G89.18 Other acute postprocedural pain; F41.9 Anxiety disorder, unspecified
CPT/HCPCS: 36415; 36430; 36511; 70450-TC; 71045-TC-FY; 72110-TC-FY; 72131-TC; 72148-TC; 76000-TC-FY; 76705-TC; 76775-TC; 80048; 80053; 81003; 82436; 82550; 82553; 82570; 82962; 83605; 83735; 83880; 84100; 84133; 84300; 84484; 85025; 85027; 85610; 85730; 86850; 86870; 86900; 86901; 86902; 86922; 87040; 87086; 93005; 93010; 93970-TC; 94002; 94010; 94640; 94760; 97116-GP; 97161-GP; 99285-25; G0378; J0131; J0735; J1644; J7030; P9038; P9058